=== PATIENT | female | born 1945 | race Caucasian/White ===

== ENCOUNTER 2019-11-26 10:29 | Outpatient (CLI) | payer MEDICARE, SELFPAY ==
[2019-11-26 13:21] LABS: Basophils Percent Auto 0.7 % (0.2-1.2); Eosinophils Absolute Auto 0.1 K/mm3 (0-0.3); Eosinophils Percent Auto 1.4 % (0-4.4); Hemoglobin 12.3 g/dL (12.0-15.0); Lymphocytes Percent Auto 44.8 % (18.3-44.2); Mean Corpuscular HGB Conc 31.5 g/dl (32-36); Mean Corpuscular Hemoglobin 30.1 pg (26-34); Mean Corpuscular Volume 95.4 fl (80-100); Mean Platelet Volume 11.6 fl (7.4-10.4); Monocytes Absolute Auto 0.4 K/mm3 (0.1-0.6); Monocytes Percent Auto 9.4 % (2.6-8.5); Neutrophils Absolute Auto 1.9 K/mm3 (1.3-6.7); Neutrophils Percent Auto 43.7 % (45.5-73.1); Platelet Count Result 197 k/mm3 (150-375); Red Blood Count 4.09 M/mm3 (4.2-5.4); Red Cell Distribution Width 14.3 % (11.5-14.5); White Blood Count 4.2 K/mm3 (4.5-10.0)
[2019-11-26 13:43] LABS: Alanine Aminotransferase 18 U/L (4-35); Albumin Level 4.3 g/dL (3.5-5.1); Alkaline Phosphatase 45 U/L (38-126); Aspartate Amino Transferase 27 U/L (14-36); Bilirubin,Total 0.7 mg/dL (0.2-1.3); Blood Urea Nitrogen 14 mg/dL (7-17); Calcium 9.6 mg/dL (8.4-10.2); Carbon Dioxide 29 mmol/L (22-30); Chloride 103 mmol/L (98-107); Cholesterol 160 mg/dL (0-200); Estimated Glomerular Filt Rate > 60; Glucose 93 mg/dL (65-105); HDL Direct 80 mg/dL; Potassium 4.2 mmol/L (3.4-5.0); Sodium 139 mmol/L (137-145); Triglycerides 40 mg/dL (<150)
[2019-11-26 13:55] LABS: LDL Cholesterol Direct 98 mg/dL
[2019-11-26 13:59] LABS: Free T4 Free Thyroxine 1.03 ng/mL (0.78-2.19)
[2019-12-02 13:47] LABS: Vitamin D 1,25 (OH)2 Total 36 pg/mL (18-72); Vitamin D2 1,25 (OH)2 <8 pg/mL; Vitamin D3 1,25 (OH)2 36 pg/mL
== END 2019-11-26 10:30 | disposition home or self-care (01) ==
LOC: ANHWCLAB 10:33
PROVIDERS: PCP Internal Medicine; Visit Provider Internal Medicine
DX: E55.9 Vitamin D deficiency, unspecified (principal); E78.2 Mixed hyperlipidemia; E01.0 Iodine-deficiency related diffuse (endemic) goiter; I10 Essential (primary) hypertension
CPT/HCPCS: 36415; 80053; 80061; 82652; 84439; 84443; 85025

== ENCOUNTER 2019-11-30 10:45 | Outpatient (CLI) | payer MEDICARE, SELFPAY ==
--- NOTE | ~2019-11-30 | US_ITS ---
EXAMINATION: US thyroid DATE: 11/30/2019 11:24 INDICATION: Thyroid nodules. TECHNIQUE: Multiple ultrasound images of the thyroid were obtained. COMPARISON: Thyroid ultrasound 08/10/2019 FINDINGS: The right thyroid lobe measures 5.0 x 1.2 x 1.2 cm. The left thyroid lobe measures 4.6 x 0.9 x 0.7 c m. In the right thyroid lobe, there is a 4 mm cystic nodule (TI-RADS TR1). There is a 4 mm mixed joellen id and cystic, hypoechoic, wider than tall nodule with smooth margin without echogenic foci (TR3). IMPRESSION: 1. Stable small thyroid nodules, likely not clinically significant. No follow-up is needed. Reviewed, dictated and finalized at location A. IMPRESSION: 1. Stable small thyroid nodules, likely not clinically significant. No follow-u p is needed.
== END 2019-11-30 10:46 | disposition home or self-care (01) ==
PROVIDERS: PCP Internal Medicine; Visit Provider Internal Medicine
DX: E01.0 Iodine-deficiency related diffuse (endemic) goiter (principal)
CPT/HCPCS: 76536

== ENCOUNTER 2020-02-23 12:01 | Outpatient (CLI) | payer MEDICARE, SELFPAY ==
--- NOTE | ~2020-02-23 | CT_ITS ---
EXAMINATION: CT abdomen pelvis w con DATE: 02/23/2020 13:13 INDICATION: Right lower quadrant abdominal pain. Melena. TECHNIQUE: Computed tomography (CT) of the abdomen and pelvis was performed with 100 mL Omnipaque 350 intravenous contrast. Automated exposure control and iterative reconstruction technique were employe d. The dose-length product was 234.11 mGy-cm. COMPARISON: Chest CT 12/30/2013 FINDINGS: The visualized portions of the lung bases demonstrate mild atelectasis. There are bilateral posterior diaphragmatic hernias containing fat. No pleural effusion. The heart size is normal. No pe ricardial effusion. There are cysts in the liver measuring up to 3.7 cm. The gallbladder, spleen, gaspar creas, and adrenal glands are normal. There are cysts in the kidneys measuring up to 10 mm on the lef t. The periuterine and ovarian veins are enlarged, consistent with pelvic venous insufficiency. There is a 2.8 cm cyst in left ovary, likely benign. There is diverticulosis of the colon without evidence of diverticulitis. The appendix is normal. There are no dilated loops of bowel. There are no patholo gically enlarged lymph nodes. There is no free intraperitoneal fluid. There is severe lower lumbar sp ondylosis. IMPRESSION: 1. Pelvic venous insufficiency. Reviewed, dictated and finalized at location A.
[2020-02-23 12:26] LABS: Basophils Absolute Auto 0.1 K/mm3 (0.0-0.1); Basophils Percent Auto 0.8 % (0.2-1.2); Eosinophils Percent Auto 0.7 % (0-4.4); Hematocrit 39.1 % (37.0-47.0); Hemoglobin 12.7 g/dL (12.0-15.0); Immature Granulocyte Absolute 0.01 K/mm3 (0.00-0.031); Immature Granulocyte Percent A 0.2 % (0-0.5); Lymphocytes Percent Auto 34.4 % (18.3-44.2); Mean Corpuscular HGB Conc 32.5 g/dl (32-36); Mean Corpuscular Hemoglobin 30.9 pg (26-34); Mean Corpuscular Volume 95.1 fl (80-100); Monocytes Absolute Auto 0.5 K/mm3 (0.1-0.6); Neutrophils Absolute Auto 3.4 K/mm3 (1.3-6.7); Neutrophils Percent Auto 55.9 % (45.5-73.1); Platelet Count Result 192 k/mm3 (150-375); Red Blood Count 4.11 M/mm3 (4.2-5.4); Red Cell Distribution Width 14.6 % (11.5-14.5); White Blood Count 6.1 K/mm3 (4.5-10.0)
[2020-02-23 12:45] LABS: Blood Urea Nitrogen 14 mg/dL (7-17); Calcium 9.6 mg/dL (8.4-10.2); Carbon Dioxide 31 mmol/L (22-30); Chloride 103 mmol/L (98-107); Estimated Glomerular Filt Rate > 60; Glucose 96 mg/dL (65-105); Potassium 3.6 mmol/L (3.4-5.0); Sodium 139 mmol/L (137-145)
== END 2020-02-23 12:02 | disposition home or self-care (01) ==
PROVIDERS: PCP Internal Medicine; Visit Provider Internal Medicine
DX: K92.1 Melena (principal); R19.7 Diarrhea, unspecified; R10.12 Left upper quadrant pain; I87.2 Venous insufficiency (chronic) (peripheral)
CPT/HCPCS: 36415; 74177; 80048; 85025; Q9967

== ENCOUNTER 2020-03-30 09:15 | Outpatient (CLI) | payer MEDICARE, SELFPAY ==
[2020-03-30 10:19] LABS: Blood Urea Nitrogen 17 mg/dL (7-17); Calcium 9.1 mg/dL (8.4-10.2); Carbon Dioxide 30 mmol/L (22-30); Chloride 103 mmol/L (98-107); Cholesterol 164 mg/dL (0-200); Estimated Glomerular Filt Rate > 60; Glucose 78 mg/dL (65-105); HDL Direct 64 mg/dL; Potassium 3.9 mmol/L (3.4-5.0); Sodium 138 mmol/L (137-145); Triglycerides 45 mg/dL (<150)
[2020-03-30 10:29] LABS: LDL Cholesterol Direct 73 mg/dL
[2020-03-30 10:54] LABS: Free T4 Free Thyroxine 0.99 ng/mL (0.78-2.19)
== END 2020-03-30 09:16 | disposition home or self-care (01) ==
LOC: ANHLAB 09:18
PROVIDERS: PCP Internal Medicine; Visit Provider Internal Medicine
DX: E78.2 Mixed hyperlipidemia (principal); I10 Essential (primary) hypertension; E01.0 Iodine-deficiency related diffuse (endemic) goiter
CPT/HCPCS: 36415; 80048; 80061; 84439; 84443

== ENCOUNTER 2020-09-30 09:59 | Outpatient (CLI) | payer MEDICARE, SELFPAY ==
[2020-09-30 10:45] LABS: Hemoglobin A1C 4.9 % (<5.7)
[2020-09-30 10:46] LABS: Alanine Aminotransferase 17 U/L (4-35); Albumin Level 4.1 g/dL (3.5-5.1); Alkaline Phosphatase 47 U/L (38-126); Anion Gap 4 mmol/L (8-16); Aspartate Amino Transferase 27 U/L (14-36); Bilirubin,Total 0.7 mg/dL (0.2-1.3); Blood Urea Nitrogen 14 mg/dL (7-17); Calcium 9.3 mg/dL (8.4-10.2); Carbon Dioxide 33 mmol/L (22-30); Chloride 103 mmol/L (98-107); Cholesterol 178 mg/dL (0-200); Estimated Glomerular Filt Rate > 60; Glucose 96 mg/dL (65-105); HDL Direct 75 mg/dL; Potassium 4.1 mmol/L (3.4-5.0); Sodium 140 mmol/L (137-145); Triglycerides 53 mg/dL (<150)
[2020-09-30 11:09] LABS: LDL Cholesterol Direct 80 mg/dL
== END 2020-09-30 10:00 | disposition home or self-care (01) ==
LOC: ANHLAB 10:02
PROVIDERS: PCP Internal Medicine; Visit Provider Internal Medicine
DX: E78.2 Mixed hyperlipidemia (principal); I10 Essential (primary) hypertension; Z79.899 Other long term (current) drug therapy
CPT/HCPCS: 36415; 80053; 80061; 83036; 84443

== ENCOUNTER 2020-10-05 12:56 | Outpatient (CLI) | payer MEDICARE, SELFPAY | END 2020-10-05 12:57 | disposition home or self-care (01) | LOC: ANHSURGERY 12:58 | PROVIDERS: PCP Internal Medicine; Visit Provider Surgery | DX: Z01.818 Encounter for other preprocedural examination (principal); K40.90 Unilateral inguinal hernia, without obstruction or gangrene, not specified as recurrent | CPT/HCPCS: 36415; 86850; 86900; 86901 ==

== ENCOUNTER 2020-10-08 00:44 | Outpatient (CLI) | payer MEDICARE, SELFPAY ==
[2020-10-08 18:47] LABS: SARS-CoV-2 RNA PCR Negative
== END 2020-10-08 00:45 | disposition home or self-care (01) ==
LOC: ANHCOVIDDT 00:45
PROVIDERS: PCP Internal Medicine; Visit Provider Surgery
DX: Z01.812 Encounter for preprocedural laboratory examination (principal); Z20.822 Contact with and (suspected) exposure to COVID-19
CPT/HCPCS: C9803; U0003; U0005

== ENCOUNTER 2020-10-11 00:39 | Day surgery (SDC) | payer MEDICARE, SELFPAY ==
[2020-10-04 10:42] VITALS: BMI 23.4
--- NOTE | 2020-10-10 11:59 | WPDANESEPPF ---
Anes - Initial Pre Proc Eval Procedure: Operation Date: 10/11/20 07:30 Proposed Procedures p Laparoscopic Right Inguinal Hernia Repair with Mesh, Davinci Assisted - Marcial Rivers DO Date/Time: 10/10/20 11:59 Surgeon: Marcial Rivers DO Pre Op Diagnosis: right inguinal hernia Patient Data Age: 75 Gender: F Height: 1.65 m Weight: 64 kg Allergies Allergy/AdvReac Type Severity Reaction Status Date / Time bee venom protein (honey bee) Allergy Severe Anaphylaxis Verified 10/11/20 06:19 Sulfa (Sulfonamide AdvReac Unknown BLOOD IN Verified 10/11/20 06:19 Antibiotics) URINE A CHILD Home Medications Medication Instructions Recorded Confirmed Type cholecalciferol (vitamin D3) 50 2,000 unit PO DAILY 08/03/19 10/11/20 History mcg (2,000 unit) tablet epinephrine 0.3 mg/0.3 mL 0.3 mg IM ONCE PRN 08/03/19 10/04/20 History injection, auto-injector mecobalamin (vitamin B12) 1,000 1,000 mcg SUBLINGUAL DAILY 08/03/19 10/11/20 History mcg disintegrating tablet,sublingual multivitamin 1 tablet PO DAILY 08/03/19 10/11/20 History amlodipine-benazepril 1 cap PO QAM 10/04/20 10/11/20 History cranberry extract 1,300 mg PO DAILY 10/04/20 10/11/20 History metoprolol succinate 50 mg PO HS 10/04/20 10/11/20 History pravastatin 40 mg PO QAM 10/04/20 10/11/20 History hydrocodone-acetaminophen [[place]] 1 tablet PO Q4H PRN #10 tablet 10/11/20 Rx Patient hx anesthesia problems: none Family hx anesthesia problems: none PMFSH Past Medical History Medical History Abdominal wall hernia Benign essential hypertension Biceps tendonitis on left Bloody stools BMI 22.0-22.9, adult Chest discomfort Diarrhea Encounter for Medicare annual wellness exam Encounter for routine adult health examination without abnormal findings Encounter for screening mammogram for malignant neoplasm of breast GERD (gastroesophageal reflux disease) Hx of chest pain Hx of sarcoma of soft tissue Left ovarian cyst Mixed hyperlipidemia On jail drug therapy RLQ abdominal pain Thyromegaly Vaginal bleeding Vitamin B12 deficiency Vitamin D deficiency Surgical History Surgical History H/O heart artery stent History of surgical removal of skin lesion left arm Family History Family History Mother Family history of lung cancer Family history of malignant neoplasm Father Acute myocardial infarction Hypertension Social History Social History Smoking packs per day: 1 Smoking cigarettes per day: 20.0 Years smoked: 10 Smoking pack-years: 10.00 Smoking status: Former smoker Smoking end date: 03/23/84 Alcohol intake: never Substance use: never Living arrangements: with family Additional living arrangements comments: Spiritual care concerns: No Anes - Eval Final PreProcedure Day of Procedure 10/10/20 11:59 Patient weight: normal Heart: regular rate and rhythm Lungs: clear to auscultation and normal air movement Airway: Mallampati scale class II Neurological: alert and oriented Last oral intake: >/= 8 hours ASA classification: II Emergent: no Anesthetic plan: proceed Anesthesia type and monitoring: general ETT Informed Consent: The patient's anesthetic plan and its attendant risks and benefits were discussed with the patient/family/POA. Questions were solicited and answers provided to the satisfaction of the patient/family/POA.
[2020-10-11] VITALS (11 sets, daily range): BP systolic 118–147; BP diastolic 54–70; PULSE 51–68; RESP 10–20; TEMP 36.1–37.4; O2SAT 99–100
[2020-10-11] MEDS: ACETAMINOPHEN 500 MG TABLET 1000 MG PO (06:16)
[2020-10-11] MEDS: LACTATED RINGERS 1,000 ML 30 ML IV CONT ×2 (06:41→09:08)
[2020-10-11] MEDS: KETOROLAC 15 MG/ML VIAL (*BKC) IV PUSH (06:54)
--- NOTE | 2020-10-11 07:17 | PM.IMHP ---
H&P: HPI History of Present Illness Date/Time: 10/11/20 07:17 Chief Complaint: [facility] Narrative: Lila Matt is a 75 year old female who presents for right inguinal hernia repair. She reports no changes since last seen in office. Review of Systems Review of Systems: All systems reviewed & are unremarkable except as noted in HPI and below Constitutional: Constitutional: Denies chills, Denies fever(s), Denies headache(s) and Denies weight loss Eyes: Eyes: Denies change in vision ENT: Denies dizziness, Denies headache(s), Denies neck mass and Denies throat swelling Cardiovascular: Cardiovascular: Denies chest pain, Denies lightheadedness and Denies dyspnea Respiratory: Respiratory: Denies cough, Denies dyspnea and Denies wheezing Gastrointestinal: Gastrointestinal: Denies abdominal pain, Denies change in bowel habits, Denies nausea and Denies vomiting Genitourinary: Genitourinary: Denies hematuria and Denies dysuria Musculoskeletal: Musculoskeletal: Reports as per HPI Integumentary/Breasts: Skin/Breast: Reports as per HPI Neurologic: Denies dizziness and Denies headache(s) Allergic/Immunologic: Allergic/Immunologic: Denies throat swelling and Denies wheezing PMF Past Medical History Medical History Abdominal wall hernia Benign essential hypertension Biceps tendonitis on left Bloody stools BMI 22.0-22.9, adult Chest discomfort Diarrhea Encounter for Medicare annual wellness exam Encounter for routine adult health examination without abnormal findings Encounter for screening mammogram for malignant neoplasm of breast GERD (gastroesophageal reflux disease) Hx of chest pain Hx of sarcoma of soft tissue Left ovarian cyst Mixed 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 RLQ abdominal pain Thyromegaly Vaginal bleeding Vitamin B12 deficiency Vitamin D deficiency Surgical History Surgical History H/O heart artery stent History of surgical removal of skin lesion left arm Family History Family History Mother Family history of lung cancer Family history of malignant neoplasm Father Acute myocardial infarction Hypertension Social History Social History Smoking packs per day: 1 Smoking cigarettes per day: 20.0 Years smoked: 10 Smoking pack-years: 10.00 Smoking status: Former smoker Smoking end date: 03/23/84 Alcohol intake: never Substance use: never Living arrangements: with family Additional living arrangements comments: Spiritual care concerns: No Meds Home Medications and Allergies Home Medications Medication Instructions Recorded Confirmed Type cholecalciferol (vitamin D3) 50 2,000 unit PO DAILY 08/03/19 10/11/20 History mcg (2,000 unit) tablet epinephrine 0.3 mg/0.3 mL 0.3 mg IM ONCE PRN 08/03/19 10/04/20 History injection, auto-injector mecobalamin (vitamin B12) 1,000 1,000 mcg SUBLINGUAL DAILY 08/03/19 10/11/20 History mcg disintegrating tablet,sublingual multivitamin 1 tablet PO DAILY 08/03/19 10/11/20 History amlodipine-benazepril 1 cap PO QAM 10/04/20 10/11/20 History cranberry extract 1,300 mg PO DAILY 10/04/20 10/11/20 History metoprolol succinate 50 mg PO HS 10/04/20 10/11/20 History pravastatin 40 mg PO QAM 10/04/20 10/11/20 History Allergies Allergy/AdvReac Type Severity Reaction Status Date / Time bee venom protein (honey bee) Allergy Severe Anaphylaxis Verified 10/11/20 06:19 Sulfa (Sulfonamide AdvReac Unknown BLOOD IN Verified 10/11/20 06:19 Antibiotics) URINE A CHILD Vital Signs Vital Signs - 24 hr 10/11/20 06:16 Temperature 37.4 C Pulse Rate 66 Respiratory Rate 20 Blood Pressure 147/70 H Pulse Oximetry 100 Exam Const: General: no acute distress and alert Orientatio
--- NOTE | 2020-10-11 07:24 | WPDHPUPDATE1 ---
History and Physical Update Update Date/Time: 10/11/20 07:24 History and Physical has been reviewed, including an updated exam of the patient. There are NO changes in the patient's condition. Risks, benefits, and alternatives have been discussed and questions answered. Patient agrees to proceed with procedure.
[2020-10-11] MEDS: ceFAZolin 2 GM/D5W 50 ML 2 GM/50 ML BAG IVPB (07:29)
[2020-10-11] MEDS: BUPIVACAINE/EPINEPHRINE 0.5% 10 ML VIAL 30 ML INFILTRATE (07:54)
--- NOTE | 2020-10-11 08:38 | PM.PROC ---
Procedure Note - Detailed Date of procedure: 10/11/20 Pre-op diagnosis: right inguinal hernia Post-op diagnosis: other (right femoral hernia) Procedure performed: Laparoscopic right femoral hernia repair with Progrip mesh, da Joel assisted Description of procedure: Procedure as well as risks, benefits, and alternatives were discussed with the patient. Written consent was obtained and placed in chart prior to procedure. Patient was brought back to surgical suite. She was placed supine on operating table. Time-out was done to confirm patient and procedure. She was then intubated by Anesthesia Department. Her abdomen was prepped and draped in sterile fashion using chlorhexidine prep. 0.5% bupivacaine with epinephrine was infiltrated at each location for incision. A 12 millimeter transverse incision was made just superior to the umbilicus using a 15 blade scalpel. Blunt dissection was carried out down to the linea alba. A vertical incision was made at the linea alba using a 15 blade scalpel. The peritoneum was then bluntly entered. A 12 millimeter trocar was inserted and carbon dioxide insufflation was used to create a pneumoperitoneum. A camera was inserted and the abdominal cavity was inspected. The patient was placed in slight Trendelenburg position. An 8 millimeter incision was made on the right lateral abdomen and an 8 millimeter trocar was inserted under direct visualization. Another 8 millimeter incision was made in the left lateral abdomen and an 8 millimeter trocar was inserted under direct visualization. The robotic arms were brought up to the patient's bedside and secured to the ports. The camera and instruments were inserted. I then moved over to the robotic console and took control of the camera and instruments. After careful inspection of the abdominal cavity, I began scoring the peritoneum along the right lower quadrant using scissors with electrocautery. The preperitoneal plane was entered and this was carefully dissected caudally along the inferior epigastric vessels. Careful dissection with scissors with electrocautery and blunt dissection was used to continue this dissection. I dissected far enough laterally to allow for mesh placement, and also dissected medially to identify the pubic arch and Arsh's ligament. The hernia sac was identified and carefully dissected posteriorly. The round ligament was also identified and the peritoneum was carefully dissected far enough posteriorly to allow for mesh placement. The round ligament was then transected using scissors with electrocautery to allow for further mobilization and flat mesh placement. Once an adequate pocket was created, I then placed the mesh within the preperitoneal pocket and carefully unfolded it. The mesh was centered on the hernia defect with adequate overlap circumferentially. The inferior edge of the mesh was inspected to ensure that it was far enough away from the peritoneal edge. The mesh appeared in proper position overlying the entire myopectineal orifice. The peritoneum was then closed over the mesh using a 3-0 V-lock running absorbable suture. The robotic instruments were removed. The robotic arms were disengaged from the ports and moved away from the bedside. The patient was flattened out in bed, the ports were removed under direct visualization, and the pneumoperitoneum was released. The fascia of the umbilical incision was approximated using an 0 Vicryl [id number] suture. The skin of the incisions was approximated using 4-0 Monocryl subcuticular suture, and Exofin glue was applied on top. The patient was awakened from anesthesia, extubated, and transferred to recovery. Implants: Progrip Mesh 10cm x 15cm Anesthesia: GETA and local (0.5% bupivicaine with epi) Surgeon: Marcial Rivers DO Estimated blood loss (mL): 5 Drains: No Packing: No Pathology: none sent Complications: No immediate complications Condition: stable Disposition: same day Finding
[2020-10-11] MEDS: fentaNYL CITRATE INJ (*CRX) 100 MCG/2 ML VIAL 25 MCG IV PUSH ×4 (09:07→09:45)
[2020-10-11] MEDS: oxyCODONE HCL (*CRX) 5 MG TAB IR PO (10:10)
--- NOTE | 2020-10-11 10:47 | SUR.OPER ---
Late Entry/RIH Mesh ProGrip 15x10, Lot [id number], Eop 2023-05-23
--- NOTE | 2020-10-11 12:02 | SUR.PHASEII ---
1126 - pt ambulated to bathroom and voided without difficulty
== END 2020-10-11 11:50 | disposition home or self-care (01) ==
PROVIDERS: PCP Internal Medicine; Visit Provider Surgery
PROC: 8E0Y4CZ Robotic Assisted Procedure of Lower Extremity, Percutaneous Endoscopic Approach (ICD-10-PCS; CPT 49650; principal; 2020-10-11 07:30)
DX: K41.90 Unilateral femoral hernia, without obstruction or gangrene, not specified as recurrent (principal); I10 Essential (primary) hypertension; E78.2 Mixed hyperlipidemia; E55.9 Vitamin D deficiency, unspecified; E53.8 Deficiency of other specified B group vitamins; Z95.5 Presence of coronary angioplasty implant and graft; Z87.891 Personal history of nicotine dependence
CPT/HCPCS: 49659; S2900; A9270; C1781; J0330; J0690; J1100; J1885; J2250; J2405; J2704; J2710; J3010; J7030; J7120

== ENCOUNTER 2021-01-24 10:50 | Outpatient (CLI) | payer MEDICARE, SELFPAY ==
[2021-01-24 11:33] LABS: Basophils Absolute Auto 0.1 K/mm3 (0.0-0.1); Eosinophils Absolute Auto 0.1 K/mm3 (0-0.3); Eosinophils Percent Auto 1.4 % (0-4.4); Hematocrit 36.9 % (37.0-47.0); Immature Granulocyte Absolute 0.01 K/mm3 (0.00-0.031); Immature Granulocyte Percent A 0.2 % (0-0.5); Lymphocytes Absolute Auto 1.97 K/mm3 (0.9-3.2); Lymphocytes Percent Auto 39.6 % (18.3-44.2); Mean Corpuscular HGB Conc 32.5 g/dl (32-36); Mean Corpuscular Volume 92.3 fl (80-100); Mean Platelet Volume 11.1 fl (7.4-10.4); Monocytes Absolute Auto 0.4 K/mm3 (0.1-0.6); Neutrophils Absolute Auto 2.5 K/mm3 (1.3-6.7); Neutrophils Percent Auto 49.8 % (45.5-73.1); Platelet Count Result 193 k/mm3 (150-375); Red Cell Distribution Width 14.9 % (11.5-14.5)
[2021-01-24 11:36] LABS: Add Urine Microscopic? NO; Appearance Urine Clear (Clear); Bilirubin Urine Negative (Negative); Blood Urine Negative (Negative); Color Urine Yellow (Yellow); Glucose Urine UA Negative (Negative); Ketones Urine Negative (Negative); Leukocyte Esterase Ur Negative LEU/UL (NEGATIVE); Nitrate Urine Negative (Negative); Protein Urine Negative (Negative); Urobilinogen Urine Negative mg/dL (<2.0)
[2021-01-24 11:43] LABS: Alanine Aminotransferase 21 U/L (4-35); Albumin Level 4.3 g/dL (3.5-5.1); Alkaline Phosphatase 48 U/L (38-126); Anion Gap 4 mmol/L (8-16); Aspartate Amino Transferase 29 U/L (14-36); Bilirubin,Total 0.7 mg/dL (0.2-1.3); Blood Urea Nitrogen 13 mg/dL (7-17); Calcium 9.3 mg/dL (8.4-10.2); Carbon Dioxide 31 mmol/L (22-30); Chloride 104 mmol/L (98-107); Cholesterol 186 mg/dL (0-200); Estimated Glomerular Filt Rate > 60; Glucose 92 mg/dL (65-105); HDL Direct 73 mg/dL; Sodium 139 mmol/L (137-145); Triglycerides 72 mg/dL (<150)
[2021-01-24 11:47] LABS: Specific Grav Ur 1.004 (1.001-1.035)
[2021-01-24 11:53] LABS: LDL Cholesterol Direct 82 mg/dL
[2021-01-24 13:40] LABS: Folic Acid > 20.0 ng/mL (2.76->20)
[2021-01-27 15:03] LABS: Vitamin D 1,25 (OH)2 Total 74 pg/mL (18-72); Vitamin D2 1,25 (OH)2 <8 pg/mL; Vitamin D3 1,25 (OH)2 74 pg/mL
== END 2021-01-24 10:51 | disposition home or self-care (01) ==
PROVIDERS: PCP Internal Medicine; Visit Provider Internal Medicine
DX: E53.8 Deficiency of other specified B group vitamins (principal); E78.2 Mixed hyperlipidemia; E55.9 Vitamin D deficiency, unspecified; Z51.81 Encounter for therapeutic drug level monitoring; Z79.899 Other long term (current) drug therapy; I10 Essential (primary) hypertension
CPT/HCPCS: 36415; 80053; 80061; 81003; 82607; 82652; 82746; 85025

== ENCOUNTER 2021-06-08 09:18 | Outpatient (CLI) | payer MEDICARE, SELFPAY ==
[2021-06-08 09:55] LABS: Hemoglobin A1C 5.1 % (<5.7)
[2021-06-08 10:01] LABS: Anion Gap 4 mmol/L (8-16); Blood Urea Nitrogen 16 mg/dL (7-17); Calcium 9.4 mg/dL (8.4-10.2); Carbon Dioxide 32 mmol/L (22-30); Chloride 104 mmol/L (98-107); Cholesterol 189 mg/dL (0-200); Estimated Glomerular Filt Rate > 60; Glucose 99 mg/dL (65-110); HDL Direct 82 mg/dL; Sodium 140 mmol/L (137-145); Triglycerides 47 mg/dL (<150)
[2021-06-08 10:12] LABS: LDL Cholesterol Direct 73 mg/dL
[2021-06-12 11:48] LABS: Vitamin D 1,25 (OH)2 Total 53 pg/mL (18-72); Vitamin D2 1,25 (OH)2 <8 pg/mL; Vitamin D3 1,25 (OH)2 53 pg/mL
== END 2021-06-08 09:19 | disposition home or self-care (01) ==
LOC: ANHLAB 09:21
PROVIDERS: PCP Internal Medicine; Visit Provider Internal Medicine
DX: Z51.81 Encounter for therapeutic drug level monitoring (principal); Z79.899 Other long term (current) drug therapy; I10 Essential (primary) hypertension; E55.9 Vitamin D deficiency, unspecified; E78.2 Mixed hyperlipidemia
CPT/HCPCS: 36415; 80048; 80061; 82652; 83036

== ENCOUNTER 2021-10-02 10:48 | Outpatient (CLI) | payer MEDICARE, SELFPAY ==
[2021-10-02 11:30] LABS: Basophils Absolute Auto 0.1 K/mm3 (0.0-0.1); Basophils Percent Auto 1.1 % (0.2-1.2); Eosinophils Absolute Auto 0.1 K/mm3 (0-0.3); Eosinophils Percent Auto 0.9 % (0-4.4); Hematocrit 35.7 % (37.0-47.0); Hemoglobin 11.8 g/dL (12.0-15.0); Immature Granulocyte Absolute 0.01 K/mm3 (0.00-0.031); Immature Granulocyte Percent A 0.2 % (0-0.5); Lymphocytes Absolute Auto 2.34 K/mm3 (0.9-3.2); Lymphocytes Percent Auto 42.3 % (18.3-44.2); Mean Corpuscular HGB Conc 33.1 g/dl (32-36); Mean Corpuscular Hemoglobin 31.1 pg (26-34); Mean Corpuscular Volume 93.9 fl (80-100); Mean Platelet Volume 10.8 fl (7.4-10.4); Monocytes Absolute Auto 0.5 K/mm3 (0.1-0.6); Monocytes Percent Auto 8.7 % (2.6-8.5); Neutrophils Absolute Auto 2.6 K/mm3 (1.3-6.7); Neutrophils Percent Auto 46.8 % (45.5-73.1); Platelet Count Result 181 k/mm3 (150-375); Red Cell Distribution Width 14.5 % (11.5-14.5); White Blood Count 5.5 K/mm3 (4.5-10.0)
[2021-10-02 11:40] LABS: Anion Gap 10 mmol/L (8-16); Blood Urea Nitrogen 17 mg/dL (7-17); Calcium 9.2 mg/dL (8.4-10.2); Carbon Dioxide 27 mmol/L (22-30); Chloride 100 mmol/L (98-107); Cholesterol 176 mg/dL (0-200); Estimated Glomerular Filt Rate > 60; Glucose 95 mg/dL (65-110); HDL Direct 82 mg/dL; Potassium 3.9 mmol/L (3.4-5.0); Sodium 137 mmol/L (137-145); Triglycerides 45 mg/dL (<150)
[2021-10-02 11:51] LABS: LDL Cholesterol Direct 78 mg/dL
== END 2021-10-02 10:49 | disposition home or self-care (01) ==
LOC: ANHLAB 10:53
PROVIDERS: PCP Internal Medicine; Visit Provider Internal Medicine
DX: E78.2 Mixed hyperlipidemia (principal); I10 Essential (primary) hypertension; Z79.899 Other long term (current) drug therapy; K21.9 Gastro-esophageal reflux disease without esophagitis; R07.89 Other chest pain
CPT/HCPCS: 36415; 80048; 80061; 85025

== ENCOUNTER 2022-01-16 09:36 | Outpatient (CLI) | payer MEDICARE, SELFPAY ==
--- NOTE | ~2022-01-16 | XR_ITS ---
EXAMINATION: XR shoulder RT min 2V INDICATION: Right shoulder pain TECHNIQUE: Four views of the right shoulder are submitted. COMPARISON: None FINDINGS: Normal alignment. No fracture. There is mild osteoarthritis of the glenohumeral and acromio clavicular joints. Soft tissues are unremarkable. IMPRESSION: 1. Mild osteoarthritis without acute osseous abnormality. Reviewed, dictated and finalized at location F.
[2022-01-16 10:14] LABS: Basophils Absolute Auto 0.1 K/mm3 (0.0-0.1); Eosinophils Absolute Auto 0.1 K/mm3 (0-0.3); Eosinophils Percent Auto 2.3 % (0-4.4); Hematocrit 36.9 % (37.0-47.0); Immature Granulocyte Absolute 0.02 K/mm3 (0.00-0.031); Immature Granulocyte Percent A 0.3 % (0-0.5); Lymphocytes Absolute Auto 1.98 K/mm3 (0.9-3.2); Lymphocytes Percent Auto 32.1 % (18.3-44.2); Mean Corpuscular HGB Conc 32.5 g/dl (32-36); Mean Corpuscular Hemoglobin 31.7 pg (26-34); Mean Corpuscular Volume 97.6 fl (80-100); Mean Platelet Volume 11.1 fl (7.4-10.4); Monocytes Absolute Auto 0.6 K/mm3 (0.1-0.6); Monocytes Percent Auto 9.2 % (2.6-8.5); Neutrophils Absolute Auto 3.4 K/mm3 (1.3-6.7); Neutrophils Percent Auto 55.1 % (45.5-73.1); Platelet Count Result 177 k/mm3 (150-375); Red Blood Count 3.78 M/mm3 (4.2-5.4); Red Cell Distribution Width 14.5 % (11.5-14.5); White Blood Count 6.2 K/mm3 (4.5-10.0)
[2022-01-16 10:28] LABS: Anion Gap 4 mmol/L (8-16); Blood Urea Nitrogen 14 mg/dL (7-17); CRP < 0.5 mg/dL (<1.0); Calcium 8.9 mg/dL (8.4-10.2); Carbon Dioxide 29 mmol/L (22-30); Chloride 104 mmol/L (98-107); Estimated Glomerular Filt Rate > 60; Glucose 87 mg/dL (65-110); Sodium 137 mmol/L (137-145)
[2022-01-16 11:09] LABS: Erythrocyte Sedimentation Rate 23 mm/hr (0-20)
== END 2022-01-16 09:37 | disposition home or self-care (01) ==
PROVIDERS: PCP Internal Medicine; Visit Provider Internal Medicine
DX: R53.83 Other fatigue (principal); Z51.81 Encounter for therapeutic drug level monitoring; Z79.899 Other long term (current) drug therapy; M62.81 Muscle weakness (generalized); M19.011 Primary osteoarthritis, right shoulder
CPT/HCPCS: 36415; 73030; 80048; 84443; 85025; 85652; 86140

== ENCOUNTER 2022-02-11 12:33 | Outpatient (CLI) | payer MEDICARE, SELFPAY ==
--- NOTE | ~2022-02-11 | MR_ITS ---
EXAMINATION: MR shoulder RT wo con DATE: 02/11/2022 13:15 INDICATION: Right shoulder pain for one month. No history of injury. TECHNIQUE: Magnetic resonance imaging (MRI) of the right shoulder was performed without intravenous c ontrast. Sequences included axial PD-weighted FS FSE, coronal oblique PD-weighted FS FSE and T2-weigh darrell FS FSE, and sagittal oblique T2-weighted FS FSE and T1-weighted FSE. COMPARISON: X-ray right shoulder 01/16/2022 FINDINGS: Coracoacromial arch: Moderate AC joint hypertrophy. Minimal inferior osteophytosis. Lateral downsloping of the type I acro mion. Rotator cuff: 5 mm rim rent type tear at the junction of the supraspinatus and infraspinatus fibers, in a backgroun d of distal tendinopathy. Small interstitial tear at the supraspinatus musculotendinous junction. Sup raspinatus and infraspinatus atrophy. Focal partial-thickness tear at insertion of the subscapularis. Biceps tendon and glenoid labrum: Glenohumeral narrowing. Glenohumeral cartilage is intact. Longitudinal type tear in the long head of biceps tendon. Fluid: Minimal subacromial subdeltoid fluid. Mild inflammatory change and long head of biceps tendon as can be seen with tenosynovitis. Bones/cartilage: Subcortical cystic changes in the humeral head. IMPRESSION: 1. Rim rent type tear of the superior cuff. Interstitial supraspinatus tear. Focal partial-thickness subscapularis tear. 2. Longitudinally oriented long head of biceps tendon tear with mild tenosynovitis. 3. Degenerative acromioclavicular and humeral changes. Reviewed, dictated and finalized at location K. IMPRESSION: 1. Rim rent type tear of the superior cuff. Interstitial supraspinatus tear. Fo aline partial-thickness subscapularis tear. 2. Longitudinally oriented long head of biceps tendon tear with mild tenosynovi tis. 3. Degenerative acromioclavicular and humeral changes.
== END 2022-02-11 12:34 | disposition home or self-care (01) ==
PROVIDERS: PCP Internal Medicine; Visit Provider Internal Medicine
DX: M75.101 Unspecified rotator cuff tear or rupture of right shoulder, not specified as traumatic (principal); S43.431A Superior glenoid labrum lesion of right shoulder, initial encounter; X58.XXXA Exposure to other specified factors, initial encounter; M19.011 Primary osteoarthritis, right shoulder
CPT/HCPCS: 73221

== ENCOUNTER 2022-05-03 15:00 | Outpatient (RCR) | payer MEDICARE, SELFPAY ==
[2022-04-27 10:05] VITALS: BP_SYST 140
--- NOTE | 2022-04-27 10:47 | PTOPEVAL ---
Thank you for referring Lila Matt to [facility].? She is scheduled to be seen for therapy? 2 x/week for 4 weeks. Please review, sign, date and return this plan of care ARIANA. I agree with and certify that the following plan of care is medically necessary. Referring Physician Date Attending Provider: Domenic Mcguire MD Past Medical History--per pt Cardiovascular History Hx Cardiac Catheterization Yes: NML CATH 03/14/20 Hx Hypercholesterolemia Yes: meds Hx Hypertension Yes: meds Hx Other Cardiac Disorders Yes: + STRESS TEST 02/2020, NEG CATH 03/14/20 DR VENICE EVANS Respiratory History Hx Respiratory Disorders No Significant History Gastrointestinal History Hx Hernia Yes: RT INGUINAL HERNIA HEENT History Hx Tonsillectomy Yes: CHILD Integumentary History Hx Excision Skin Lesion Yes: SKIN CA- LT ARM, RADIATION Other History Hx Cancer Yes: SKIN CA LT ARM Hx Radiation Therapy Yes: LT ARM Evaluation Information Diagnosis R shoulder rotator cuff tear Onset Oct 2021 Subjective Information gradual increase in shoulder Query Text:As Reported By Patient/ pain, no injury or trauma to Family shoulder; doing all home tasks due to with medical issues- he can care for himself, she does not have to physically help him; wants to try PT and avoid having to have surgery; X-Rays For This Problem Yes MRI For This Problem Yes: R rotator cuff tear Pain Assessment Pain Scale Pain Scale Used Numeric (1 - 10) Self Report Pain Assessment Right Shoulder(s) Pain Description Aching,Dull,Sharp Radicular Pain Location at worst, lateral humerus to elbow--intermittent and lateral neck Pain Frequency Chronic,Continuous Other Pain Description hurts-anterior and lateral shoulder Lowest Pain Intensity 1 Greatest Pain Intensity 7 Pain Aggravating Factors Exercise/Activity,Lifting Other Pain Aggravating Factors reach behind body and overhead Additional Pain Score Comments not used heat/ice- instructed to use PRN; initially pain with sleeping, lie on R side- but now better; had injection 04-04-22-- helped some but starting to hurt more again Pain Relief Interventions Used By Migel
--- NOTE | 2022-05-08 11:28 | PCPTNOTE ---
Patient called & cancelled scheduled appointment for this week due to increase leg pain and has a scheduled appointment with Dr. Langford for more information.
--- NOTE | 2022-05-14 16:03 | PCPTNOTE ---
received a message, pt called and canceled all of therapy appt due to having leg pain. I called her, she stated shoulder is better, discussed to continue doing the shoulder exercises, progression from cane to active motion as tolerated. She stated she had MRI of her leg and awaiting dr to give her results. Discussed with her that PT plan of care for her shoulder is to May 2; she is to call if want to continue therapy for shoulder before that date.
--- NOTE | 2022-07-26 13:31 | PCPTNOTE ---
PHYSICAL THERAPY DISCHARGE 07-26-22 LATE ENTRY Attending Provider: Domenic Mcguire MD Patient:Lila Matt Date of :1945 Mayda has received 3 PT sessions, from April 27 to 2021, for the diagnosis of R rotator cuff tear/shoulder pain. She called late in April and stated her shoulder was better and did not want any more therapy. Therefore she will be discharged at this time. Thank you for referring this patient to [facility].
== END 2022-07-25 12:39 | disposition home or self-care (01) ==
LOC: ANHPT 15:00
PROVIDERS: PCP Internal Medicine; Referring Provider Orthopaedic Surgery; Visit Provider Orthopaedic Surgery
DX: M75.101 Unspecified rotator cuff tear or rupture of right shoulder, not specified as traumatic (principal)
CPT/HCPCS: 97110; 97161

== ENCOUNTER → 2022-05-08 09:42 | Outpatient (CLI) | payer MEDICARE, SELFPAY ==
--- NOTE | ~2022-05-08 | US_ITS ---
EXAMINATION: US joint non vasc comp LT DATE: 05/08/2022 10:05 INDICATION: Enthesopathy. Assess for Rader's cyst. TECHNIQUE: Multiple grayscale and Doppler ultrasound images of the lateral popliteal fossa of the lef t knee were obtained. COMPARISON: None FINDINGS/IMPRESSION: At the region of concern is a 2.1 x 1.6 cm echogenic and shadowing structure with small amount of nedra rounding hypoechoic fluid. This appears to be closely associated with the proximal head of the fibula more lateral than typical for a Rader's cyst. Differential would include a loose body within a gangl ion cyst or potentially recess of the proximal tibiofibular joint versus heterotopic ossicle or osteo chondroma arising from the fibula with associated bursitis. Consider correlation with knee radiograph s. Reviewed, dictated and finalized at location A.
== END ==
PROVIDERS: PCP Internal Medicine; Visit Provider Internal Medicine
DX: M77.32 Calcaneal spur, left foot (principal)
CPT/HCPCS: 76881

== ENCOUNTER 2022-05-10 13:49 | Outpatient (CLI) | payer MEDICARE, SELFPAY ==
--- NOTE | ~2022-05-10 | MR_ITS ---
EXAMINATION: MR knee LT wo con DATE: 05/10/2022 14:47 INDICATION: Left knee pain. TECHNIQUE: Magnetic resonance imaging (MRI) of the left knee was performed without intravenous contra st. Sequences included axial PD-weighted FS FSE, coronal PD-weighted FSE and PD-weighted FS FSE, sagi ttal PD-weighted FSE, and sagittal T2-weighted FS FSE. COMPARISON: None. FINDINGS: Medial compartment: Medial meniscus is normal. There is cartilage surface irregularity of tibial condyle. Femoral cartila ge is normal. Lateral compartment: The lateral meniscus is normal. Lateral compartment cartilage is normal. Patellofemoral compartment: There is full-thickness cartilage loss of patellar median ridge and medial and lateral facets with mi ld subchondral edema-like marrow signal intensity. There is full-thickness cartilage loss of medial t rochlea with mild subchondral edema-like marrow signal intensity. Ligaments and tendons: The anterior and posterior cruciate ligaments are normal. There are changes of prior sprains of media l collateral ligament and fibular collateral ligament characterized by thickening and increased signa l intensity. There is mild patellar tendinopathy. Fluid: There is a small knee joint effusion. There is mild superficial infrapatellar bursitis. IMPRESSION: 1. Severe chondrosis of patellofemoral compartment and mild chondrosis of medial compartment. 2. Small knee joint effusion. Reviewed, dictated and finalized at location A. IMPRESSION: 1. Severe chondrosis of patellofemoral compartment and mild chondrosis of media l compartment. 2. Small knee joint effusion.
== END 2022-05-10 13:50 | disposition home or self-care (01) ==
LOC: ANHIMG 13:51
PROVIDERS: PCP Internal Medicine; Visit Provider Internal Medicine
DX: M25.462 Effusion, left knee (principal)
CPT/HCPCS: 73721

== ENCOUNTER 2022-05-21 09:35 | Outpatient (CLI) | payer MEDICARE, SELFPAY ==
[2022-05-21 10:09] LABS: Basophils Absolute Auto 0.1 K/mm3 (0.0-0.1); Basophils Percent Auto 1.3 % (0.2-1.2); Eosinophils Absolute Auto 0.1 K/mm3 (0-0.3); Eosinophils Percent Auto 2.3 % (0-4.4); Hematocrit 38.2 % (37.0-47.0); Hemoglobin 12.1 g/dL (12.0-15.0); Immature Granulocyte Absolute 0.01 K/mm3 (0.00-0.031); Immature Granulocyte Percent A 0.2 % (0-0.5); Lymphocytes Absolute Auto 1.91 K/mm3 (0.9-3.2); Lymphocytes Percent Auto 40.4 % (18.3-44.2); Mean Corpuscular HGB Conc 31.7 g/dl (32-36); Mean Corpuscular Hemoglobin 30.6 pg (26-34); Mean Corpuscular Volume 96.5 fl (80-100); Mean Platelet Volume 10.7 fl (7.4-10.4); Monocytes Absolute Auto 0.4 K/mm3 (0.1-0.6); Monocytes Percent Auto 8.9 % (2.6-8.5); Neutrophils Absolute Auto 2.2 K/mm3 (1.3-6.7); Neutrophils Percent Auto 46.9 % (45.5-73.1); Platelet Count Result 205 k/mm3 (150-375); Red Blood Count 3.96 M/mm3 (4.2-5.4); Red Cell Distribution Width 14.3 % (11.5-14.5); White Blood Count 4.7 K/mm3 (4.5-10.0)
[2022-05-21 10:20] LABS: Appearance Urine Clear (Clear); Bilirubin Urine Negative (Negative); Color Urine Yellow (Yellow); Glucose Urine UA Negative (Negative); Ketones Urine Negative (Negative); Leukocyte Esterase Ur Trace LEU/UL (Negative); Nitrate Urine Negative (Negative); Protein Urine Negative (Negative); Specific Grav Ur 1.015 (1.001-1.035); Urobilinogen Urine 0.2 mg/dL (<2.0)
[2022-05-21 10:21] LABS: Alanine Aminotransferase 14 U/L (6-35); Alkaline Phosphatase 50 U/L (38-126); Anion Gap 8 mmol/L (8-16); Aspartate Amino Transferase 22 U/L (14-36); Bilirubin,Total 0.6 mg/dL (0.2-1.3); Blood Urea Nitrogen 15 mg/dL (7-17); Calcium 9.2 mg/dL (8.4-10.2); Carbon Dioxide 30 mmol/L (22-30); Chloride 102 mmol/L (98-107); Cholesterol 174 mg/dL (0-200); Estimated Glomerular Filt Rate > 60; Glucose 88 mg/dL (65-110); HDL Direct 75 mg/dL; Potassium 4.1 mmol/L (3.4-5.0); Sodium 140 mmol/L (137-145); Triglycerides 39 mg/dL (<150)
[2022-05-21 10:29] LABS: Add Urine Microscopic? YES; Blood Urine Trace-Intact (Negative)
[2022-05-21 10:32] LABS: LDL Cholesterol Direct 73 mg/dL
[2022-05-21 10:48] LABS: Hemoglobin A1C 5.2 % (<5.7)
[2022-05-21 10:52] LABS: Mucus Urine Rare /lpf; RBC Urine 0-2 /hpf (0-2); WBC Urine 0-3 /hpf
[2022-05-21 11:05] LABS: Free T4 Free Thyroxine 1.15 ng/mL (0.78-2.19); Vitamin D 25 Hydroxy 37.5 ng/mL
[2022-05-21 11:30] LABS: Folic Acid > 20.0 ng/mL (2.76->20)
== END 2022-05-21 09:36 | disposition home or self-care (01) ==
LOC: ANHLAB 09:38
PROVIDERS: PCP Internal Medicine; Visit Provider Internal Medicine
DX: Z79.899 Other long term (current) drug therapy (principal); E01.0 Iodine-deficiency related diffuse (endemic) goiter; Z13.29 Encounter for screening for other suspected endocrine disorder; I10 Essential (primary) hypertension; E78.2 Mixed hyperlipidemia; E55.9 Vitamin D deficiency, unspecified
CPT/HCPCS: 36415; 80053; 80061; 81001; 82306; 82607; 82746; 83036; 84439; 84443; 85025

== ENCOUNTER 2022-06-28 10:47 | Outpatient (CLI) | payer MEDICARE, SELFPAY ==
[2022-06-28 11:41] LABS: Appearance Urine Clear (Clear); Bilirubin Urine Negative (Negative); Blood Urine 1+ (Negative); Color Urine Yellow (Yellow); Glucose Urine UA Negative (Negative); Ketones Urine Negative (Negative); Leukocyte Esterase Ur Trace LEU/UL (Negative); Nitrate Urine Negative (Negative); Protein Urine Negative (Negative); Urobilinogen Urine 0.2 mg/dL (<2.0)
[2022-06-28 11:47] LABS: Bacteria Urine Trace /hpf; WBC Urine 21-30 /hpf
[2022-06-28 11:49] LABS: Add Urine Microscopic? YES
== END 2022-06-28 10:48 | disposition home or self-care (01) ==
PROVIDERS: PCP Internal Medicine; Visit Provider Internal Medicine
DX: R39.9 Unspecified symptoms and signs involving the genitourinary system (principal)
CPT/HCPCS: 81001; 87086; 87088

== ENCOUNTER 2022-10-09 09:57 | Outpatient (CLI) | payer MEDICARE, SELFPAY ==
[2022-10-09 10:23] LABS: Basophils Absolute Auto 0.1 K/mm3 (0.0-0.1); Basophils Percent Auto 1.4 % (0.2-1.2); Eosinophils Absolute Auto 0.1 K/mm3 (0-0.3); Eosinophils Percent Auto 2.1 % (0-4.4); Hematocrit 37.4 % (37.0-47.0); Lymphocytes Percent Auto 44.6 % (18.3-44.2); Mean Corpuscular HGB Conc 32.1 g/dl (32-36); Mean Corpuscular Hemoglobin 30.5 pg (26-34); Mean Corpuscular Volume 94.9 fl (80-100); Mean Platelet Volume 11.4 fl (7.4-10.4); Monocytes Absolute Auto 0.4 K/mm3 (0.1-0.6); Monocytes Percent Auto 9.4 % (2.6-8.5); Neutrophils Absolute Auto 1.8 K/mm3 (1.3-6.7); Neutrophils Percent Auto 42.5 % (45.5-73.1); Platelet Count Result 181 k/mm3 (150-375); Red Blood Count 3.94 M/mm3 (4.2-5.4); Red Cell Distribution Width 14.2 % (11.5-14.5); White Blood Count 4.3 K/mm3 (4.5-10.0)
[2022-10-09 10:48] LABS: Alanine Aminotransferase 18 U/L (6-35); Alkaline Phosphatase 48 U/L (38-126); Anion Gap 4 mmol/L (8-16); Aspartate Amino Transferase 22 U/L (14-36); Bilirubin,Total 0.5 mg/dL (0.2-1.3); Blood Urea Nitrogen 13 mg/dL (7-17); Calcium 8.9 mg/dL (8.4-10.2); Carbon Dioxide 31 mmol/L (22-30); Chloride 102 mmol/L (98-107); Cholesterol 171 mg/dL (0-200); Estimated Glomerular Filt Rate > 60; Glucose 87 mg/dL (65-110); HDL Direct 71 mg/dL; Potassium 4.2 mmol/L (3.4-5.0); Sodium 137 mmol/L (137-145); Triglycerides 47 mg/dL (<150)
[2022-10-09 10:49] LABS: LDL Cholesterol Direct 66 mg/dL
[2022-10-09 12:07] LABS: Free T4 Free Thyroxine 1.08 ng/mL (0.78-2.19); Vitamin D 25 Hydroxy 46.1 ng/mL
== END 2022-10-09 09:58 | disposition home or self-care (01) ==
PROVIDERS: PCP Internal Medicine; Visit Provider Internal Medicine
DX: E78.2 Mixed hyperlipidemia (principal); I10 Essential (primary) hypertension; R79.89 Other specified abnormal findings of blood chemistry; E55.9 Vitamin D deficiency, unspecified
CPT/HCPCS: 36415; 80053; 80061; 82306; 84439; 84443; 85025

== ENCOUNTER 2022-11-12 15:02 | Outpatient (CLI) | payer MEDICARE, SELFPAY ==
--- NOTE | ~2022-11-12 | DEXA_ITS ---
Bone Density Report Name: JAIDEN LIM Age: 77 Sex: Female Ethnicity: White Date of : 1945 Indication: postmenopausal; screening for osteoporosis; Referring Provider: MARINO CASTELLANOS Study: Bone densitometry was performed. Exam Date: November 12, 2022 Accession number: [id number] Bone Density: Region BMD T-score Z-score Classification AP Spine(L1-L4) 0.781 -2.4 0.1 Osteopenia Femoral Neck (Left) 0.614 -2.1 0.0 Osteopenia Total Hip (Left) 0.797 -1.2 0.7 Osteopenia Femoral Neck (Right) 0.675 -1.6 0.6 Osteopenia Total Hip (Right) 0.773 -1.4 0.5 Osteopenia Total Hip Mean 0.785 -1.3 0.6 Osteopenia World Health Organization criteria for BMD impression classify patients as: Normal (T-score at or above -1.0), Osteopenia (T-score between -1.0 and -2.5), or Osteoporosis (T-score at or below -2.5). 10-year Fracture Risk(1): Major Osteoporotic Fracture 13% Hip Fracture 3.7% Reported Risk Factors: [place] (), Neck BMD=0.614, BMI=22.4 (1) FRAX(R) Version 3.08. Fracture probability calculated for an untreated patient. Fracture probability may be lower if the patient has received treatment. Clinical Information Provided by Patient: Has used the following medications: Fosamax (i.e. alendronate), Vitamin D Patient maximum height was 66.5 Menopause Age: 41 Drinks caffeinated beverages Onset of menses at age 16 Number of children 1 Impression: The patient has low bone mass, based on the Total Spine T-score. The patient has an estimated ten-year risk of hip fracture of 3.7% and an estimated ten-year risk of major fracture of 13%, based on the WHO FRAX algorithm. Discussion: BONE DENSITY IS LOW AT ONE OR MORE SKELETAL SITES. THE PATIENT'S BMD AND CLINICAL RISK FACTORS CONTRIBUTE TO THIS PATIENT'S INCREASED RISK OF FRACTURE. This patient's lowest T-score is low at one or more skeletal sites. It meets the World Health Organization's (WHO) criteria for ?low bone mass? (T-score between -1.0 and -2.5). The patient's 10-year risk of hip fracture as calculated by FRAX exceeds the threshold where pharmacological therapy is recommended by the National Osteoporosis Foundation (NOF). However, all treatment decisions require clinical judgment and consideration of individual patient factors, including patient preferences, comorbidities, previous drug use, risk factors not captured in the FRAX model (e.g., frailty, falls, vitamin D deficiency, increased bone turnover, interval significant decline in bone density) and possible under or overestimation of fracture risk by FRAX. The patient should follow a healthful lifestyle (good nutrition with adequate calcium and vitamin D, and appropriate weight-bearing exercise). Follow-Up: Consider a repeat BMD and Vertebral Fracture Assessment (VFA)
== END 2022-11-12 15:03 | disposition home or self-care (01) ==
LOC: ANHIMG 15:03
PROVIDERS: PCP Internal Medicine; Visit Provider Internal Medicine
DX: Z78.0 Asymptomatic menopausal state (principal); M85.89 Other specified disorders of bone density and structure, multiple sites
CPT/HCPCS: 77080

== ENCOUNTER 2022-12-17 10:51 | Outpatient (CLI) | payer MEDICARE, SELFPAY ==
--- NOTE | ~2022-12-17 | XR_ITS ---
XR shoulder LT min 2V DATE: 12/17/2022 11:19 INDICATION: Left arm pain TECHNIQUE: 4 views COMPARISON: 08/10/2019 left shoulder FINDINGS: There is levoscoliosis of the upper thoracic spine. There is osteopenia. No fracture or dislocation, periosteal reaction or bone destruction or abnormal soft tissue calcifica tion of the left shoulder. IMPRESSION: Osteopenia Levoscoliosis of the upper thoracic spine No significant abnormality of the left shoulder Reviewed, dictated and finalized at location B.
--- NOTE | ~2022-12-17 | XR_ITS ---
XR chest 2V DATE: 12/17/2022 11:18 INDICATION: Left arm pain. TECHNIQUE: PA and lateral views COMPARISON: None FINDINGS: Bilateral hyperinflation. No pulmonary infiltrate or consolidation, pleural effusion or pul monary vascular congestion or pneumothorax. Normal heart size. No hilar or mediastinal enlargement. Osteopenia. IMPRESSION: Bilateral hyperinflation; no active cardiopulmonary disease or significant change since Reviewed, dictated and finalized at location B. IMPRESSION: Bilateral hyperinflation; no active cardiopulmonary disease or sign ificant change since 05/17/2011
--- NOTE | ~2022-12-17 | XR_ITS ---
XR humerus LT DATE: 12/17/2022 11:18 INDICATION: Left arm pain TECHNIQUE: AP and lateral views COMPARISON: None FINDINGS: There is osteopenia. No fracture or dislocation, periosteal reaction or bone destruction. N ormal alignment at the acromioclavicular, glenohumeral and elbow joints. IMPRESSION: Osteopenia; otherwise negative Reviewed, dictated and finalized at location B.
--- NOTE | ~2022-12-17 | XR_ITS ---
XR forearm LT 2V DATE: 12/17/2022 11:18 INDICATION: Left arm pain TECHNIQUE: AP and lateral views COMPARISON: None FINDINGS: No fracture or dislocation, periosteal reaction or bone destruction. Normal alignment at th e elbow and wrist joints. IMPRESSION: Negative Reviewed, dictated and finalized at location B. IMPRESSION: Negative
== END 2022-12-17 10:52 | disposition home or self-care (01) ==
PROVIDERS: PCP Internal Medicine; Visit Provider Internal Medicine
DX: R91.8 Other nonspecific abnormal finding of lung field (principal); M85.812 Other specified disorders of bone density and structure, left shoulder; M85.822 Other specified disorders of bone density and structure, left upper arm
CPT/HCPCS: 71046; 73030; 73060; 73090

== ENCOUNTER 2023-01-01 10:06 | Outpatient (CLI) | payer MEDICARE, SELFPAY ==
--- NOTE | 2023-01-01 10:11 | EST_ITS ---
Patient Info Name: Lila Matt Age: 77 years : 1945 Gender: Female Ht: 66 in Wt: 136 lbs BSA: 1.70 m2 HR: 65 bpm BP: 162 / 98 mmHg Heart Rhythm: Sinus Rhythm Exam Date: 01/01/2023 10:40 AM Exam Location: [facility] Stress Patient Status: Outpatient Admit Date: 01/01/2023 Staff Ordering Physician: Robert Langford MD Attending Provider: Robert Langford MD Exercise Technologist: Cris Robison CT Exercise Physician: Miguel Koroma DO Exam Type: CA stress test treadmill Study Info Indications R07.89 - Other chest pain R06.09 - Other forms of dyspnea A treadmill exercise stress test was performed. Summary 1. 1. Negative Lucas exercise stress test for ischemic ST changes by ECG criteria. 2. 2. Good functional capacity, achieving 7 METs of workload. 3. 3. Transient atrial tachycardia at peak exercise. 4. 4. Appropriate HR response to exercise. 5. 5. Appropriate HR recovery at 1 minute post exercise. 6. 6. No imaging with stress testing. 7. 7. Patient informed of the above results. Protocol: Lucas Stress ECG Details Stage: REST Duration (min): 1 min : 47 sec Speed (mph): 0.0 Grade (%): 0 HR (bpm): 65 SBP (mmHg): 169 DBP (mmHg): 84 METS: --- Stage: REST Duration (min): 4 min : 55 sec Speed (mph): 0.0 Grade (%): 0 HR (bpm): 67 SBP (mmHg): 162 DBP (mmHg): 86 METS: --- Stage: STAGE 1 Duration (min): 1 min : 0 sec Speed (mph): 1.7 Grade (%): 10 HR (bpm): 83 SBP (mmHg): 162 DBP (mmHg): 86 METS: --- Stage: STAGE 1 Duration (min): 2 min : 0 sec Speed (mph): 1.7 Grade (%): 10 HR (bpm): 96 SBP (mmHg): 162 DBP (mmHg): 86 METS: --- Stage: STAGE 1 Duration (min): 3 min : 0 sec Speed (mph): 1.7 Grade (%): 10 HR (bpm): 100 SBP (mmHg): 155 DBP (mmHg): 77 METS: --- Stage: STAGE 2 Duration (min): 1 min : 0 sec Speed (mph): 2.5 Grade (%): 12 HR (bpm): 110 SBP (mmHg): 155 DBP (mmHg): 77 METS: --- Stage: STAGE 2 Duration (min): 2 min : 0 sec Speed (mph): 2.5 Grade (%): 12 HR (bpm): 115 SBP (mmHg): 161 DBP (mmHg): 78 METS: --- Stage: STAGE 2 Duration (min): 2 min : 37 sec Speed (mph): 2.5 Grade (%): 12 HR (bpm): 134 SBP (mmHg): 161 DBP (mmHg): 78 METS: --- Stage: RECOVERY Duration (min): 0 min : 22 sec Speed (mph): 0.0 Grade (%): 0 HR (bpm): 132 SBP (mmHg): 161 DBP (mmHg): 78 METS: --- Stage: RECOVERY Duration (min): 1 min : 22 sec Speed (mph): 0.0 Grade (%): 0 HR (bpm): 101 SBP (mmHg): 161 DBP (mmHg): 78 METS: --- Stage: RECOVERY Duration (min): 2 min : 22 sec Speed (mph): 0.0 Grade (%): 0 HR (bpm): 82 SBP (mmHg): 161 DBP (mmHg): 78 METS: --- Stage: RECOVERY Duration (min): 3 min : 2 sec Speed (mph): 0.0 Grade (%): 0 HR (bpm): 79 S
== END 2023-01-01 10:07 | disposition home or self-care (01) ==
LOC: ANHCARD 10:07
PROVIDERS: PCP Internal Medicine; Visit Provider Internal Medicine
DX: R06.09 Other forms of dyspnea (principal); R06.02 Shortness of breath; R07.89 Other chest pain
CPT/HCPCS: 93017

== ENCOUNTER 2023-02-13 09:59 | Outpatient (CLI) | payer MEDICARE, SELFPAY ==
[2023-02-13 10:15] LABS: Basophils Absolute Auto 0.1 K/mm3 (0.0-0.1); Basophils Percent Auto 1.4 % (0.2-1.2); Eosinophils Absolute Auto 0.1 K/mm3 (0-0.3); Eosinophils Percent Auto 2.5 % (0-4.4); Hematocrit 39.3 % (37.0-47.0); Hemoglobin 12.7 g/dL (12.0-15.0); Immature Granulocyte Absolute 0.01 K/mm3 (0.00-0.031); Immature Granulocyte Percent A 0.2 % (0-0.5); Lymphocytes Absolute Auto 1.73 K/mm3 (0.9-3.2); Lymphocytes Percent Auto 39.5 % (18.3-44.2); Mean Corpuscular HGB Conc 32.3 g/dl (32-36); Mean Corpuscular Hemoglobin 30.8 pg (26-34); Mean Corpuscular Volume 95.4 fl (80-100); Mean Platelet Volume 10.6 fl (7.4-10.4); Monocytes Absolute Auto 0.4 K/mm3 (0.1-0.6); Monocytes Percent Auto 9.8 % (2.6-8.5); Neutrophils Percent Auto 46.6 % (45.5-73.1); Platelet Count Result 218 k/mm3 (150-375); Red Blood Count 4.12 M/mm3 (4.2-5.4); Red Cell Distribution Width 14.2 % (11.5-14.5); White Blood Count 4.4 K/mm3 (4.5-10.0)
[2023-02-13 10:32] LABS: Hemoglobin A1C 5.2 % (<5.7)
[2023-02-13 10:33] LABS: Alanine Aminotransferase 17 U/L (6-35); Albumin Level 4.4 g/dL (3.5-5.1); Alkaline Phosphatase 49 U/L (38-126); Anion Gap 7 mmol/L (8-16); Aspartate Amino Transferase 23 U/L (14-36); Bilirubin,Total 0.9 mg/dL (0.2-1.3); Blood Urea Nitrogen 18 mg/dL (7-17); Calcium 8.8 mg/dL (8.4-10.2); Carbon Dioxide 29 mmol/L (22-30); Chloride 103 mmol/L (98-107); Cholesterol 184 mg/dL (0-200); Estimated Glomerular Filt Rate > 60; Glucose 93 mg/dL (65-110); HDL Direct 88 mg/dL; Potassium 4.1 mmol/L (3.4-5.0); Sodium 139 mmol/L (137-145); Triglycerides 49 mg/dL (<150)
[2023-02-13 10:44] LABS: LDL Cholesterol Direct 79 mg/dL
[2023-02-13 10:49] LABS: Free T4 Free Thyroxine 1.29 ng/mL (0.78-2.19)
== END 2023-02-13 10:00 | disposition home or self-care (01) ==
PROVIDERS: PCP Internal Medicine; Visit Provider Internal Medicine
DX: R73.09 Other abnormal glucose (principal); I10 Essential (primary) hypertension; E78.2 Mixed hyperlipidemia; R79.89 Other specified abnormal findings of blood chemistry
CPT/HCPCS: 36415; 80053; 80061; 83036; 84439; 84443; 85025

== ENCOUNTER 2023-04-30 12:32 | Outpatient (CLI) | payer MEDICARE, SELFPAY ==
--- NOTE | ~2023-04-30 | US_ITS ---
EXAMINATION: US venous doppler LE RT DATE: 04/30/2023 13:25 INDICATION: Chest pain TECHNIQUE: Grayscale ultrasound images without and with compression and Doppler ultrasound images of the right lower extremity veins were obtained. COMPARISON: None. FINDINGS: The visualized portions of right common femoral vein, profunda (deep) femoral vein, femoral vein, pop liteal vein, peroneal trunk, posterior tibial veins, peroneal veins, gastrocnemius vein and greater s aphenous vein outflow are patent. IMPRESSION: 1. No deep venous thrombosis in the right lower limb. Reviewed, dictated and finalized at location L.
--- NOTE | ~2023-04-30 | XR_ITS ---
EXAMINATION: XR knee RT min 4V DATE: 04/30/2023 12:50 INDICATION: Right knee pain and swelling TECHNIQUE: Anteroposterior, 2 oblique and crosstable lateral views of the right knee were obtained COMPARISON: None. FINDINGS: Alignment is normal. No fracture. Joint spaces appear normal on nonweightbearing imaging. There are however small marginal osteophytes all 3 compartments consistent with at least mild tricompartmental osteoarthritis. No joint effusion/layering lipohemarthrosis. Soft tissues are unremarkable. IMPRESSION: 1. At least mild tricompartmental osteoarthritis at the right knee with no joint effusion or acute os seous abnormality. Reviewed, dictated and finalized at location L. IMPRESSION: 1. At least mild tricompartmental osteoarthritis at the right knee with no join t effusion or acute osseous abnormality.
[2023-04-30 13:27] LABS: Iron 64 ug/dL (37-170)
[2023-04-30 13:36] LABS: Percent Iron Saturation 19 % (20-50)
== END 2023-04-30 12:33 | disposition home or self-care (01) ==
LOC: ANHIMG 12:34
PROVIDERS: PCP Internal Medicine; Visit Provider Internal Medicine
DX: R53.83 Other fatigue (principal); M25.461 Effusion, right knee; R07.89 Other chest pain; M17.11 Unilateral primary osteoarthritis, right knee; M25.561 Pain in right knee
CPT/HCPCS: 36415; 73564; 82728; 83540; 83550; 93971

== ENCOUNTER 2023-08-27 09:22 | Outpatient (CLI) | payer MEDICARE, SELFPAY ==
[2023-08-27 19:41] LABS: Alanine Aminotransferase 17 U/L (6-35); Albumin Level 4.1 g/dL (3.5-5.1); Alkaline Phosphatase 49 U/L (38-126); Anion Gap 8 mmol/L (8-16); Aspartate Amino Transferase 24 U/L (14-36); Bilirubin,Total 0.8 mg/dL (0.2-1.3); Blood Urea Nitrogen 18 mg/dL (7-17); Calcium 9.1 mg/dL (8.4-10.2); Carbon Dioxide 30 mmol/L (22-30); Chloride 102 mmol/L (98-107); Cholesterol 182 mg/dL (0-200); Estimated Glomerular Filt Rate > 60; Glucose 88 mg/dL (65-110); HDL Direct 74 mg/dL; Potassium 3.7 mmol/L (3.4-5.0); Sodium 140 mmol/L (137-145); Triglycerides 60 mg/dL (<150)
[2023-08-27 19:52] LABS: LDL Cholesterol Direct 83 mg/dL
[2023-08-27 20:07] LABS: Vitamin D 25 Hydroxy 39.8 ng/mL
== END 2023-08-27 09:23 | disposition home or self-care (01) ==
PROVIDERS: PCP Internal Medicine; Visit Provider Internal Medicine
DX: E55.9 Vitamin D deficiency, unspecified (principal); E78.2 Mixed hyperlipidemia; I10 Essential (primary) hypertension; Z79.899 Other long term (current) drug therapy
CPT/HCPCS: 36415; 80053; 80061; 82306

== ENCOUNTER 2024-01-02 10:03 | Outpatient (CLI) | payer MEDICARE, SELFPAY ==
[2024-01-02 12:11] LABS: Basophils Absolute Auto 0.1 K/mm3 (0.0-0.1); Basophils Percent Auto 1.3 % (0.2-1.2); Eosinophils Absolute Auto 0.1 K/mm3 (0-0.3); Eosinophils Percent Auto 2.6 % (0-4.4); Hematocrit 39.5 % (37.0-47.0); Hemoglobin 12.6 g/dL (12.0-15.0); Lymphocytes Absolute Auto 2.32 K/mm3 (0.9-3.2); Lymphocytes Percent Auto 50.2 % (18.3-44.2); Mean Corpuscular HGB Conc 31.9 g/dl (32-36); Mean Corpuscular Hemoglobin 30.7 pg (26-34); Mean Corpuscular Volume 96.3 fl (80-100); Mean Platelet Volume 11.5 fl (7.4-10.4); Monocytes Absolute Auto 0.4 K/mm3 (0.1-0.6); Monocytes Percent Auto 8.2 % (2.6-8.5); Neutrophils Absolute Auto 1.7 K/mm3 (1.3-6.7); Neutrophils Percent Auto 37.7 % (45.5-73.1); Platelet Count Result 197 k/mm3 (150-375); Red Cell Distribution Width 14.3 % (11.5-14.5); White Blood Count 4.6 K/mm3 (4.5-10.0)
[2024-01-02 12:26] LABS: Alanine Aminotransferase 20 U/L (6-35); Albumin Level 4.3 g/dL (3.5-5.1); Alkaline Phosphatase 48 U/L (38-126); Anion Gap 4 mmol/L (4-12); Aspartate Amino Transferase 47 U/L (14-36); Bilirubin,Total 0.9 mg/dL (0.2-1.3); Blood Urea Nitrogen 21 mg/dL (7-17); Calcium 9.3 mg/dL (8.4-10.2); Carbon Dioxide 31 mmol/L (22-30); Chloride 106 mmol/L (98-107); Cholesterol 178 mg/dL (0-200); Estimated Glomerular Filt Rate > 60; Glucose 93 mg/dL (65-110); HDL Direct 78 mg/dL; Sodium 141 mmol/L (137-145); Triglycerides 54 mg/dL (<150)
[2024-01-02 12:37] LABS: LDL Cholesterol Direct 82 mg/dL
[2024-01-02 12:52] LABS: Thyroid Stimulating Hormone 0.279 uIU/mL (0.465-4.680)
[2024-01-02 13:29] LABS: Free T4 Free Thyroxine 1.03 ng/mL (0.78-2.19)
[2024-01-02 22:46] LABS: Hemoglobin A1C 5.1 % (<5.7)
== END 2024-01-02 10:04 | disposition home or self-care (01) ==
PROVIDERS: PCP Internal Medicine; Visit Provider Internal Medicine
DX: R73.09 Other abnormal glucose (principal); Z79.899 Other long term (current) drug therapy; E01.0 Iodine-deficiency related diffuse (endemic) goiter; Z13.29 Encounter for screening for other suspected endocrine disorder; E78.2 Mixed hyperlipidemia; I10 Essential (primary) hypertension; R79.89 Other specified abnormal findings of blood chemistry
CPT/HCPCS: 36415; 80053; 80061; 83036; 84439; 84443; 85025

== ENCOUNTER 2024-01-30 12:35 | Outpatient (CLI) | payer MEDICARE, SELFPAY ==
--- NOTE | ~2024-01-30 | XR_ITS ---
EXAMINATION: XR lumbar spine 2-3V DATE: 01/30/2024 13:22 INDICATION: Low back pain, unspecified. TECHNIQUE: 3 views of lumbar spine were obtained. COMPARISON: Lumbar spine radiographs 06/15/2004 FINDINGS: There is 7 degrees levocurvature of thoracic and lumbar spine. Vertebral body heights are n ormal. There is severely decreased disc height at L5-S1. There is multilevel facet joint osteoarthrit is, severe in lower lumbar spine. IMPRESSION: 1. Severe lower lumbar spondylosis. Reviewed, dictated and finalized at location A.
--- NOTE | ~2024-01-30 | XR_ITS ---
EXAMINATION: XR hip LT 2V w AP pelvis DATE: 01/30/2024 13:22 INDICATION: Pain in unspecified hip. TECHNIQUE: An anteroposterior view of the pelvis and 2 views of left hip were obtained. COMPARISON: Pelvis and left hip radiograph 02/26/2007 FINDINGS: There is lumbar levocurvature and severe spondylosis. No fracture. There is mild osteoarthr itis of the hips. IMPRESSION: 1. Mild osteoarthritis of the hips. Reviewed, dictated and finalized at location A.
== END 2024-01-30 12:36 ==
PROVIDERS: PCP Internal Medicine; Visit Provider Internal Medicine
DX: M43.06 Spondylolysis, lumbar region (principal); M16.0 Bilateral primary osteoarthritis of hip
CPT/HCPCS: 72100; 73502

== ENCOUNTER 2024-03-27 09:30 | Outpatient (RCR) | payer MEDICARE, SELFPAY ==
--- NOTE | 2024-02-21 13:26 | OPREHPOC ---
Outpatient Therapy Plan of Care This is a Multidisciplinary Plan of Care that may contain components documented by all disciplines (PT, OT, and ST.) PT Problem 1 PT Problem #1 Knowledge Deficit PT Goal 1 Goal *indep with HEP * correct body mechanics with lifting from floor Target Visit 8 PT Problem 2 PT Problem #2 Pain PT Goal 1 Goal 1* pt report pain of 3/10 at worst 2* self assessment Oswestry rating of 8% limitation in activity level 3* pt report with sit to stand transfer: pain does not increase Target Visit 8 PT Problem 3 PT Problem #3 Impaired Strength PT Goal 1 Goal increase strength of trunk and hips to stabilize spine and improve position of back 1* single leg standing R x 20 seconds with good stability 2* single leg standing L x 20 seconds with good stability 3* supine bridge x 20 reps through full ROM 4* prone hip extension R and L x 20 reps Target Visit 8
--- NOTE | 2024-02-21 13:29 | PTOPEVAL1 ---
Assessment and note entered by Berkley Fish, PT Evaluation Information Assessment Status Evaluation Diagnosis low back pain Onset about one year Subjective Information have had pain in back, off/on for past year; xray: lumbar: severe lumbar spondylosis, facet joint OA and decrease disc height x ray L hip: mild OA Activity: active, walks dog, home with - occasionally has to help pick him up off the floor when he falls; ( educated pt and demonstrated how to assist him from floor--pull on couch, chair, put belt on him and stand behind him and pull on belt) Is able to do all of her home tasks, and yard work but have more pain in back; Walks for fitness, but not any regular exercises. Reported Pain Level Pain Score Self Report Additional Pain Score Comments pain range in the past week 0-5/10; muscle pain, hurts in lateral hips and thighs to proximal to knees weird pain, cannot describe; have cramps in front of hips and inner thighs; cramps in legs-- restless leg syndrome; increase pain: after sitting and go to stand up; when first wake up in AM; decreased pain: get up and move a little bit; heat with sleeping, pain does not wake her up, but when get up to go to bathroom- has back pain and restless leg cramps educated pt on monitor sitting time--she sits in evening and watches TV; get up, walk about every 30-45 mintues to manage her pain; Assessment PT Clinical Summary Mayda has the diagnosis of low back pain. Chronic issues with back pain off/on, depending upon her activity. Reports cramping and pain in low back, lateral hips and to lateral- anterior thighs. Self assessment Oswestry rating of 12% limitation in activity. She is doing all of her required home and self care tasks with increase pain sometimes. x rays of lumbar spine-severe lumbar spondylosis and L hip mild OA. With the evaluation: she has scoliosis and curvature of her spine, with weakness over trunk and hip extension; decreas
--- NOTE | 2024-03-05 12:22 | PCPTNOTE ---
Patient is out of town and needed to cancel.
--- NOTE | 2024-03-19 12:43 | PCPTNOTE ---
Mrs. Matt called to cancel her appointment today due to feeling ill. Bennie Hernández, MPT
--- NOTE | 2024-03-27 09:59 | OPREHPOC ---
Outpatient Therapy Plan of Care This is a Multidisciplinary Plan of Care that may contain components documented by all disciplines (PT, OT, and ST.) PT Problem 1 PT Problem #1 Knowledge Deficit PT Goal 1 Goal *indep with HEP * correct body mechanics with lifting from floor Target Visit 8 Progress Met PT Problem 2 PT Problem #2 Pain PT Goal 1 Goal 1* pt report pain of 3/10 at worst 2* self assessment Oswestry rating of 8% limitation in activity level 3* pt report with sit to stand transfer: pain does not increase Target Visit 8 Progress Met PT Problem 3 PT Problem #3 Impaired Strength PT Goal 1 Goal increase strength of trunk and hips to stabilize spine and improve position of back 1* single leg standing R x 20 seconds with good stability 2* single leg standing L x 20 seconds with good stability 3* supine bridge x 20 reps through full ROM 4* prone hip extension R and L x 20 reps Target Visit 8 Progress Partially Met
--- NOTE | 2024-03-27 10:00 | PTOPDC ---
Assessment and note entered by Mimi Blair DPT Evaluation Information Assessment Status Discharge Diagnosis low back pain Onset about one year Subjective Information Pt reports she is feeling much better, her hips and legs are better. Her pain overall has decreased. Highest pain in the last week 2/10 and lowest 0/10. States there is nothing she is unable to do at home. Feels ready to be done with therapy at this time. Reported Pain Level Pain Score 0: Self Report Assessment PT Clinical Summary The patient has made excellent progress in therapy . She reports greatly decreased pain to 2/10 and no functional limitations at this time. She demonstrates improved LE strength and no pain with lumbar motion. Due to her progress, plan for discharge this date. She has been educated in a thorough HEP and to follow up with MD and/or PT as needed. Plan of Care PT Services Indicated No
== END 2024-03-27 14:03 | disposition home or self-care (01) ==
LOC: ANHGOSHPT 09:30
PROVIDERS: PCP Internal Medicine; Visit Provider Internal Medicine
DX: M54.50 Low back pain, unspecified (principal); M47.816 Spondylosis without myelopathy or radiculopathy, lumbar region
CPT/HCPCS: 97110; 97140; 97161; 97530

== ENCOUNTER 2024-05-01 13:28 | Outpatient (CLI) | payer MEDICARE, SELFPAY ==
--- NOTE | ~2024-05-01 | MR_ITS ---
EXAMINATION: MR lumbar spine wo con DATE: 05/01/2024 14:18 INDICATION: Lumbar spondylosis without myelopathy radiculopathy. Low back pain. TECHNIQUE: Magnetic resonance imaging (MRI) of the lumbar spine was performed without intravenous con trast. Sequences included sagittal T2-weighted FSE, sagittal T2-weighted FS FSE, sagittal T1-weighted FSE, and axial T2-weighted FSE. COMPARISON: Lumbar spine radiographs 01/30/2024 FINDINGS: There is 8 degrees levocurvature of lumbar spine. Vertebral body heights are normal. There is mildly decreased disc height at L3-L4 and L4-L5 and severely decreased disc height at L5-S1. The d istal spinal cord signal intensity is normal. The conus medullaris is at L1-L2. The following disc le vels are specifically discussed: L1-L2: The disc is bulging. There is mild left facet joint osteoarthritis. There is mild left neural foraminal stenosis. There is no central canal stenosis. L2-L3: The disc is mildly bulging. There is mild bilateral facet joint osteoarthritis. There is mild left neural foraminal stenosis. There is no central canal stenosis. L3-L4: The disc is bulging. There is mild bilateral facet joint osteoarthritis. There is mild bilater al neural foraminal stenosis. There is mild central canal stenosis. L4-L5: The disc is bulging and has an annular fissure. There is severe bilateral facet joint osteoart hritis. There is mild bilateral neural foraminal stenosis. There is mild central canal stenosis. L5-S1: The disc is bulging and has an annular fissure. There is severe bilateral facet joint osteoart hritis. There is mild bilateral neural foraminal stenosis. There is mild central canal stenosis. IMPRESSION: 1. Severe lower lumbar spondylosis. Reviewed, dictated and finalized at location A.
== END 2024-05-01 13:29 ==
LOC: GOSHIMG 13:29
PROVIDERS: PCP Internal Medicine; Visit Provider Internal Medicine
DX: M47.816 Spondylosis without myelopathy or radiculopathy, lumbar region (principal)
CPT/HCPCS: 72148

== ENCOUNTER 2024-08-28 10:45 | Outpatient (CLI) | payer MEDICARE, SELFPAY ==
[2024-08-28 15:09] LABS: Alanine Aminotransferase 19 U/L (6-35); Albumin Level 4.3 g/dL (3.5-5.1); Alkaline Phosphatase 50 U/L (38-126); Anion Gap 4 mmol/L (4-12); Aspartate Amino Transferase 40 U/L (14-36); Bilirubin,Total 0.7 mg/dL (0.2-1.3); Blood Urea Nitrogen 20 mg/dL (7-17); Calcium 9.4 mg/dL (8.4-10.2); Carbon Dioxide 32 mmol/L (22-30); Chloride 103 mmol/L (98-107); Cholesterol 194 mg/dL (0-200); Estimated Glomerular Filt Rate > 60; Glucose 74 mg/dL (65-110); HDL Direct 84 mg/dL; Potassium 4.3 mmol/L (3.4-5.0); Sodium 139 mmol/L (137-145); Triglycerides 60 mg/dL (<150)
[2024-08-28 15:20] LABS: LDL Cholesterol Direct 80 mg/dL
== END 2024-08-28 10:46 | disposition home or self-care (01) ==
LOC: ANHGOSHLAB 10:46
PROVIDERS: PCP Internal Medicine; Visit Provider Internal Medicine
DX: E55.9 Vitamin D deficiency, unspecified (principal); E78.2 Mixed hyperlipidemia; I10 Essential (primary) hypertension; Z79.899 Other long term (current) drug therapy
CPT/HCPCS: 36415; 80053; 80061; 82306

== ENCOUNTER 2024-09-24 10:29 | Outpatient (CLI) | payer MEDICARE, SELFPAY ==
--- NOTE | ~2024-09-24 | XR_ITS ---
HISTORY: M25.512 - Pain in left shoulder personal history of melanoma COMPARISON: None TECHNIQUE: 2 views of the left shoulder FINDINGS: No acute fracture. The glenohumeral joint space is maintained. Borderline widening of the acromioclavicular joint space is present suggesting acromioclavicular join t space injury. The visualized portion of the adjacent left lung is clear. The humeral head is well seated within the glenoid fossa. IMPRESSION: No acute fracture or anterior dislocation. Findings suggesting acromioclavicular joint space injury, as detailed above. Reviewed, dictated and finalized at location A. CY DIRECTOR
--- NOTE | ~2024-09-24 | XR_ITS ---
[id number] Ordering provider: Robert Langford MD History: . M25.512 - Pain in left shoulder . Comparison: None. FINDINGS: VERTEBRAL BODIES: Normal height and alignment. No visible fracture or subluxation. The dens is intact . DISK SPACES: Narrowing of the disc C4-C5, C5-C6 and C6-C7. Multilevel uncovertebral joint osteoarthri tic changes. Multilevel facet joint disease in the uterus. No PARASPINOUS SOFT TISSUES: No prevertebral soft tissue swelling. IMPRESSION: No acute osseous abnormality cervical spine. Multilevel degenerative disc disease. Reviewed, dictated and finalized at location A. RITY AMBASSADOR
== END 2024-09-24 10:30 | disposition home or self-care (01) ==
LOC: GOSHIMG 10:30
PROVIDERS: PCP Internal Medicine; Visit Provider Internal Medicine
DX: M50.321 Other cervical disc degeneration at C4-C5 level (principal); M50.322 Other cervical disc degeneration at C5-C6 level; M50.323 Other cervical disc degeneration at C6-C7 level
CPT/HCPCS: 72040; 73030

== ENCOUNTER 2024-11-27 13:09 | Outpatient (CLI) | payer MEDICARE, SELFPAY ==
--- NOTE | ~2024-11-27 | MR_ITS ---
EXAMINATION: MR shoulder LT wo con DATE: 11/27/2024 13:50 INDICATION: Pain in left shoulder. TECHNIQUE: Magnetic resonance imaging (MRI) of the left shoulder was performed without intravenous co ntrast. Sequences included axial PD-weighted FS FSE, coronal oblique PD-weighted FS FSE and T2-weight ed FS FSE, and sagittal oblique T2-weighted FS FSE and T1-weighted FSE. COMPARISON: Left shoulder radiographs 09/24/2024 FINDINGS: Coracoacromial arch: The acromion undersurface is curved in morphology (type II). There is severe acromioclavicular joint osteoarthritis. There is moderate subacromial/subdeltoid bursitis. Rotator cuff: There is severe supraspinatus and infraspinatus tendinopathy. There is an articular sided partial-thi ckness tear of the conjoined portion of the tendon measuring 5 mm anterior to posterior by 7 mm proxi mal to distal by less than 20% thickness. Teres minor tendon is normal. There is mild subscapularis t endinopathy. There is no asymmetric fatty atrophy of the rotator cuff muscle bellies. Biceps tendon and glenoid labrum: Biceps tendon is in bicipital groove. There is mild intra-articular biceps tendinopathy. The glenoid labrum is intact. Fluid: There is no glenohumeral joint effusion. Bones/cartilage: There is cartilage surface irregularity of glenoid and humeral head. IMPRESSION: 1. Severe rotator cuff tendinopathy with partial-thickness articular-sided tear of the conjoined port ion of supraspinatus and infraspinatus tendons. 2. Severe acromioclavicular joint osteoarthritis. 3. Moderate subacromial/subdeltoid bursitis. 4. Mild glenohumeral joint chondrosis. 5. Mild intra-articular biceps tendinopathy. Reviewed, dictated and finalized at location A. DISPATCHER IMPRESSION: 1. Severe rotator cuff tendinopathy with partial-thickness articular-sided tear of the conjoined portion of supraspinatus and infraspinatus tendons. 2. Severe acromioclavicular joint osteoarthritis. 3. Moderate subacromial/subdeltoid bursitis. 4. Mild glenohumeral joint chondrosis. 5. Mild intra-articular biceps tendinopathy.
== END 2024-11-27 13:10 | disposition home or self-care (01) ==
LOC: GOSHIMG 13:10
PROVIDERS: PCP Internal Medicine; Visit Provider Internal Medicine
DX: M77.8 Other enthesopathies, not elsewhere classified (principal); M75.112 Incomplete rotator cuff tear or rupture of left shoulder, not specified as traumatic; M19.012 Primary osteoarthritis, left shoulder; M75.52 Bursitis of left shoulder; M94.212 Chondromalacia, left shoulder; M75.22 Bicipital tendinitis, left shoulder
CPT/HCPCS: 73221

== ENCOUNTER 2025-01-05 10:07 | Outpatient (CLI) | payer MEDICARE, SELFPAY ==
--- OUTSIDE RECORDS SUMMARY | 2025-01-05 11:01 | XMS_ITS | Referral Summary ---
Author Organization [facility] Address [address] [place] [address] Care Team Providers Care Frame Cleaner Name Role Phone Robert Langford MD Primary Care Provider [phone] Encounters Date Type Department Care Team Description 10/24/2024 1:39 PM PRODUCTION TEAM ADVISOR - 10/24/2024 11:59 PM PRODUCTION TEAM ADVISOR Hospital Encounter [facility] [address] [place] [address] Screening mammogram, encounter for Discharge Disposition: Discharge to home or self care from Last 3 Months Allergies Active Allergy Reactions Criticality Noted Date Comments Venom-Honey Bee Unknown 03/08/2020 Sulfa (Sulfonamide Antibiotics) Unknown 02/21 Social History Tobacco Use Types Packs/Day Years Used Date Smoking Tobacco: Never Assessed Comments No Sex and Gender Information Value Date Recorded Sex Assigned at Not on file Legal Sex Female 3:52 PM PRODUCTION TEAM ADVISOR Gender Identity Not on file Sexual Orientation Not on file Last Filed Vital Signs Vital Sign Reading Time Taken Comments Blood Pressure - - Pulse - - Temperature - - Respiratory Rate - - Oxygen Saturation - - Inhaled Oxygen Concentration - - Weight 63.5 kg (140 lb) 01/14/2018 12:38 PM CDT Height 165.1 cm (5' 5 ) 05/14/2023 1:09 PM CDT Body Mass Index 22.6 01/14/2018 12:38 PM CDT Plan of Treatment Not on file Procedures Procedure Name Priority Date/Time Associated Diagnosis Comments SCREENING MAMMOGRAM BILATERAL W JESUS Schedule Routine, Read Routine (OP Routine) 10/24/2024 1:56 PM PRODUCTION TEAM ADVISOR Screening mammogram, encounter for from Last 3 Months Results * Screening Mammogram Bilateral W Jesus (10/24/2024 1:56 PM PRODUCTION TEAM ADVISOR) Anatomical Region Laterality Modality Breast Bilateral Mammography 10/26/2024 8:35 AM PRODUCTION TEAM ADVISOR Impressions 10/26/2024 8:35 AM PRODUCTION TEAM ADVISOR No evidence of malignancy in either breast. FINAL ASSESSMENT: BI-RADS Category 1: Negative. RECOMMENDATION: Recommend return for annual screening mammogram in 12 months. Electronically signed by: Cliff Ferris M.D. Narrative 10/26/2024 8:35 AM PRODUCTION TEAM ADVISOR EXAMINATION: BILATERAL SCREENING MAMMOGRAM COMPARISON: 05/14/2023, 03/05/2022, 08/19/2020 TECHNIQUE: Full-field 2D and digital breast tomosynthesis (DBT) images were obtained. CAD was utilized. BREAST PARENCHYMAL COMPOSITION: There are scattered areas of fibroglandular density. FINDINGS: There is no suspicious mass, calcification, or distortion in either breast. us Self Screening Mammogram IMG MAMMO PROCEDURES Fi nal Result from Last 3 Months Insurance MEDICARE [facility] MEDICARE [facility] MEDICARE SUPPLEMENT Care Teams Frame Cleaner Relationship Specialty Start Date End Date Robert Langford MD [address] [employer] [place], [place] [id number] PCP - General 01/01/17
--- OUTSIDE RECORDS SUMMARY | 2025-01-05 11:01 | XMS_ITS | Clinical Summary ---
Author Organization [facility] Address [address] [facility] [place] [address] Phone Care Team Providers Care Geriatrics Physician Name Role Phone Robert Langford MD Primary Care Provider + Allergies Active Allergy Reactions Criticality Noted Date Comments Sulfa (Sulfonamide Antibiotics) Unknown 02/21 Venom-Honey Bee Unknown 03/08/2020 Medications amLODIPine-benaz epril (LOTREL) 5-20 mg capsule TK 1 C PO QD 02/10/2020 Active metoprolol succinate (TOPROL XL) 50 mg Extended Release 24 hour tablet TK 1 T PO D 02/23/2020 Active pravastatin (PRAVACHOL) 40 mg tablet TK 1 T PO D 12/31/2019 Active cholecalciferol, Vitamin D3, (Vitamin D3) 25 mcg (1,000 unit) Capsule Take by mouth daily. Active cyanocobalamin, vitamin B-12, (VITAMIN B12 ORAL) Take by mouth. Active CRANBERRY ORAL Take by mouth. Active aspirin (NAV CHEWABLE) 81 mg Tablet, Chewable Take 81 mg by mouth daily. Active famotidine (PEPCID) 20 mg tablet Take 20 mg by mouth 2 times daily. Active Active Problems Patient Care Coordination No te Formatting of this note migh t be different from the original. Cameron Gregorio MD--Drier And Pulverizer Tender ([facility] @ ) Problem Noted Date Diagnosed Date Other chest pain 03/11/2020 Essential hypertension 03/11/2020 Mixed hyperlipidemia 03/11/2020 Immunizations Immunization Administration Dates Next Due Influenza Seasonal Unspecified Formulation IM Family History Medical History Relation Name Comments Heart Disease Father Heart Disease Mother Relation Name Status Comments Father Mother Social History Tobacco Use Types Packs/Day Years Used Date Smoking Tobacco: Former Cigarettes 1 10 1 239 1988 Smokeless Tobacco: Never Alcohol Use Standard Drinks/Week Comments Not Currently 0 (1 standard drink = 0.6 oz pur e alcohol) Comments Unknown Sex and Gender Information Value Date Recorded Sex Assigned at Not on file Legal Sex Female 1:41 PM CDT Gender Identity Not on file Sexual Orientation Not on file Last Filed Vital Signs Vital Sign Reading Time Taken Comments Blood Pressure 115/51 03/14/2020 4:00 PM CDT Pulse 70 03/14/2020 12:15 PM CDT Temperature 36.9 C (98.4 F) 03/11/2020 8:07 AM CDT Respiratory Rate 14 03/14/2020 2:15 PM CDT Oxygen Saturation 100% 03/14/2020 4:15 PM CDT Inhaled Oxygen Concentration - - Weight 63.5 kg (140 lb) 03/14/2020 12:15 PM CDT Height 165.1 cm (5' 5 ) 03/14/2020 12:15 PM CDT Body Mass Index 23.3 03/14/2020 12:15 PM CDT Plan of Treatment Health Maintenance Due Date Last Done Comments DTAP/TDAP/TD VACCINES (1 - Tdap) 1965 PNEUMOCOCCAL VACCINE 50+ YEARS (1 of 1 - PCV) 04/18/19 96 ZOSTER VACCINE (1 of 2) 1996 RSV VACCINE (60+ or ) (1 - 1-dose 75+ series) 2021 INFLUENZA VACCINE (#1) 2024 07/14/2019 OSTEOPOROSIS SCREENING Completed 01/05/2016 COLORECTAL SCREENING Discontinued 06/10/2019 Colorectal Cancer Screening Discontinued FIT-DNA Q 3 years Discontinued FIT/FOBT Q 1 year Discontinued Flex Sig/CT Colonography Q 5 years Discontinued Insurance MEDICARE PART A AND B BCBS SUPP Advance Directives For more information, please contact: [phone] * Full Code (Latest Code Status on File) Date Activated Date Inactivated Comments 03/14/2020 11:40 AM 03/14/2020 8:21 PM Care Teams Geriatrics Physician Relationship Specialty Start Date End Date Robert Langford MD [address] [place] [address] PCP - General Internal Medicine 03/11/20
--- OUTSIDE RECORDS SUMMARY | 2025-01-05 11:01 | XMS_ITS | Clinical Summary ---
Author Organization [facility] Address [address] [place] [address] Care Team Providers Care 3D Artist Name Role Phone Robert Langford MD Primary Care Provider [phone] Allergies Active Allergy Reactions Criticality Noted Date Comments Venom-Honey Bee Unknown 03/08/2020 Sulfa (Sulfonamide Antibiotics) Unknown 02/21 Encounters Date Type Department Care Team Description 10/24/2024 1:39 PM SLUDGE MILL OPERATOR - 10/24/2024 11:59 PM SLUDGE MILL OPERATOR Hospital Encounter [facility] [address] [place] [address] Screening mammogram, encounter for Discharge Disposition: Discharge to home or self care from Last 3 Months Medical History Medical History Date Comments Skin cancer of arm, left Family History Medical History Relation Name Comments Thyroid cancer Mother Breast cancer Neg Hx Ovarian cancer Neg Hx Relation Name Status Comments Mother Social History Tobacco Use Types Packs/Day Years Used Date Smoking Tobacco: Never Assessed Comments No Sex and Gender Information Value Date Recorded Sex Assigned at Not on file Legal Sex Female 3:52 PM SLUDGE MILL OPERATOR Gender Identity Not on file Sexual Orientation Not on file Obstetrics History Para Term AB IAB SAB Ectopic Multiple Livin g Live Births 1 1 Date Outcome GA Total Labor Labor/2nd/3rd Weight Sex Type Anes PTL Torrie A1 A5 Name Clin Term Last Filed Vital Signs Vital Sign Reading Time Taken Comments Blood Pressure - - Pulse - - Temperature - - Respiratory Rate - - Oxygen Saturation - - Inhaled Oxygen Concentration - - Weight 63.5 kg (140 lb) 01/14/2018 12:38 PM CDT Height 165.1 cm (5' 5 ) 05/14/2023 1:09 PM CDT Body Mass Index 22.6 01/14/2018 12:38 PM CDT Plan of Treatment Health Maintenance Due Date Last Done Comments Depression Screening 1946 Fall Risk Assessment 1946 Hepatitis C Screening 1946 Osteoporosis Screening-Bone Density Scan 1946 Hepatitis B Screening 1964 Pneumococcal vaccine 65+ (1 of 1 - PCV) 1996 Zoster Vaccine (1 of 2) 1996 Well Visit 65+ 2011 Influenza Vaccine (#1) 2024 9, 07/14/2019, 07/15/2018, Additional history exists DTaP/Tdap/Td Vaccine (2 - Td or Tdap) 05/08/2026 05/08/2016 Breast Cancer Screening-Mammogram Discontinued 10/24/2024, 05/14/2023, 03/05/2022, Additional history exists Procedures Procedure Name Priority Date/Time Associated Diagnosis Comments SCREENING MAMMOGRAM BILATERAL W JESUS Schedule Routine, Read Routine (OP Routine) 10/24/2024 1:56 PM SLUDGE MILL OPERATOR Screening mammogram, encounter for from Last 3 Months Results * Screening Mammogram Bilateral W Jesus (10/24/2024 1:56 PM SLUDGE MILL OPERATOR) Anatomical Region Laterality Modality Breast Bilateral Mammography 10/26/2024 8:35 AM SLUDGE MILL OPERATOR Impressions 10/26/2024 8:35 AM SLUDGE MILL OPERATOR No evidence of malignancy in either breast. FINAL ASSESSMENT: BI-RADS Category 1: Negative. RECOMMENDATION: Recommend return for annual screening mammogram in 12 months. Electronically signed by: Cliff Ferris M.D. Narrative 10/26/2024 8:35 AM SLUDGE MILL OPERATOR EXAMINATION: BILATERAL SCREENING MAMMOGRAM COMPARISON: 05/14/2023, 03/05/2022, 08/19/2020 TECHNIQUE: Full-field 2D and digital breast tomosynthesis (DBT) images were obtained. CAD was utilized. BREAST PARENCHYMAL COMPOSITION: There are scattered areas of fibroglandular density. FINDINGS: There is no suspicious mass, calcification, or distortion in either breast. us Self Screening Mammogram IMG MAMMO PROCEDURES Fi nal Result from Last 3 Months Insurance MEDICARE [email or web address] MEDICARE [facility] MEDICARE SUPPLEMENT Care Teams 3D Artist Relationship Specialty Start Date End Date Robert Langford MD [address] [facility] [address] [place] [address] PCP - General 01/01/17
--- OUTSIDE RECORDS SUMMARY | 2025-01-05 11:01 | XMS_ITS | Continuity of Care Document ---
Author Organization [facility] Address [address] [place] [address] Phone Care Team Providers Care Cutter Tender Name Role Phone Kishore Velazco Unavailable Unavailable Procedures Procedure Date Office/outpatient Visit, Est Office/outpatient Visit, Est Eye Exam Established Pt Office/outpatient Visit, Est Fundus Photography W/ Report Visual Field Examination(s) Office/outpatient Visit, Est Office/outpatient Visit, Est Visual Field Examination(s) Office/outpatient Visit, Est Office/outpatient Visit, Est Fundus Photography W/ Report Visual Field Examination(s) Advance Directives Directive Yes / No Effective Date File Name No Information Encounters Encounter Description Practice Location Reason(s) For Visit Diagnoses Date Provider Providers Copied on Encounter Office/outpat ient Visit, [facility], [address], [place], [place], [address], [place] tel:[phone] [facility] No Information 0-200 9 Juan A Novak. [address] , [address], [place], [address], [place]. tel:[phone] Office/outpat ient Visit, [facility], [address], [place], [place], [address], [place] tel:[phone] [facility] No Information 200 9 Juan A Novak. [address], [place], [place], [facility], [place]. tel:[phone] [facility], [address], [place], [place], [address], [place] tel:[phone] [facility] No Information 9 Juan A Edsong. [address] , [address], [place], [place], [facility], [place]. tel:[phone] Office/outpat ient Visit, [facility], [address] [place] [address] [address], [place], [place], [address], tel:[phone] [facility] No Information 8 Juan A Novak. [address], [place], [place], [facility], [place]. tel:[phone] Referring Provider: Kishore Wong, [facility] [address], [place], [place], [facility]. tel:[phone] [facility], [address] [place] [address] [address], [place], [place], [address], [place] tel:[phone] [facility] No Information 8 Juan A Novak. [address], [address], [place], [place], [facility], [place]. tel:[phone] Referring Provider: Kishore Wong, [facility] hospital[facility] [address], [place], [place], [facility]. tel:[phone] Office/outpat ient Visit, [facility], [address] [place] [address] [address], [place], [place], [address], [place] tel:[phone] [facility] No Information 8 Juan A Novak. [address] , [address], [place], [facility], [place]. tel:[phone] Office/outpat ient Visit, [facility], [address], [place], [place], [address], [place] tel:[phone] [facility] No Information Aug- 9-200 7 Juan A Novak. [address] [facility] , [address], [place], [facility], [place]. tel:[phone] [facility], [address], [place], [place], [address], [place] tel:[phone] [facility] No Information Aug-1 0-200 7 Juan A Novak. [address] [facility] , [address], [place], [facility], [place]. tel:[phone] Referring Provider: Kishore Wong, [facility] [address], [place], [facility]. tel:[phone] Office/outpat ient Visit, [facility], [address], [place], [place], [address], [place] tel:[phone] [facility] No Information 9200 7 Juan A Novak. Critical [facility] [address], [address], [place], [facility], [place]. tel:[phone] Office/outpat ient Visit, [facility], [address] [place] [address] [address], [place], [place], [address], [place] tel:[phone] [facility] No Information Oct-2 8200 7 [address] Novak. [facility] , [address], [place], [place], [facility], [place]. tel:[phone] Referring Provider: Amarilys Gold [facility] [address], [place], [facility]. tel:[phone] [facility], [address], [place], [place], [address], [place] tel:[phone] [facility] No Information 7 Juan A Novak. [address] [facility] , [address], [place], [address], [place]. tel:[phone] Referring Provider: Kishore Wong [address] [facility] [address], [place], [address]. tel:[phone] Family History Family Member Type Diagnosis Age At Onset No Information Payers Payer name Insurance type Covered constitution party ID Authoriza tion(s) No Information Social History Type Description Quantity Date Captured Comments Sex Female Smoking Status No Information Chief Complaint And Reason For Visit No Information Reason For Referral Reason For Referral No Information History Of Present Illness Encounter Date Complaint History Of Prese nt Illness No Information Functional Status Date Functional Assessmen t No Information Instructions Date Instruction Additional Infor mation No Information Assessments Type Assessment Date No Information Patient Care Teams Name Effective Dates (start - stop) Status Members No Information
[2025-01-05 11:45] LABS: Hemoglobin A1C 5.3 % (<5.7)
[2025-01-05 11:54] LABS: Free T4 Free Thyroxine 1.02 ng/dL (0.78-2.19)
[2025-01-05 18:39] LABS: Alanine Aminotransferase 23 U/L (6-35); Albumin Level 3.8 g/dL (3.5-5.1); Alkaline Phosphatase 49 U/L (38-126); Anion Gap 5 mmol/L (4-12); Aspartate Amino Transferase 37 U/L (14-36); Bilirubin,Total 0.6 mg/dL (0.2-1.3); Blood Urea Nitrogen 23 mg/dL (7-17); Carbon Dioxide 30 mmol/L (22-30); Chloride 104 mmol/L (98-107); Cholesterol 178 mg/dL (0-200); Estimated Glomerular Filt Rate > 60; Glucose 83 mg/dL (65-110); HDL Direct 76 mg/dL; Sodium 139 mmol/L (137-145); Triglycerides 47 mg/dL (<150)
[2025-01-05 18:50] LABS: LDL Cholesterol Direct 77 mg/dL
[2025-01-05 19:08] LABS: Thyroid Stimulating Hormone 0.049 uIU/mL (0.465-4.680)
== END 2025-01-05 10:08 | disposition home or self-care (01) ==
LOC: ANHGOSHLAB 10:08
PROVIDERS: PCP Internal Medicine; Visit Provider Internal Medicine
DX: E78.2 Mixed hyperlipidemia (principal); I10 Essential (primary) hypertension; Z13.1 Encounter for screening for diabetes mellitus; Z13.29 Encounter for screening for other suspected endocrine disorder; Z79.899 Other long term (current) drug therapy
CPT/HCPCS: 36415; 80053; 80061; 83036; 84439; 84443; 84481

== ENCOUNTER 2025-04-20 08:53 | Outpatient (CLI) | payer MEDICARE, SELFPAY ==
--- OUTSIDE RECORDS SUMMARY | 2025-04-20 09:03 | XMS_ITS | Referral Summary ---
Author Organization [facility] Address [address] [place] [address] Care Team Providers Care Retail Sales Professional Name Role Phone Robert Langford MD Primary Care Provider [phone] Allergies Active Allergy Reactions Criticality Noted Date Comments Venom-Honey Bee Unknown 03/08/2020 Sulfa (Sulfonamide Antibiotics) Unknown 02/21 Social History Tobacco Use Types Packs/Day Years Used Date Smoking Tobacco: Never Assessed Comments No Sex and Gender Information Value Date Recorded Sex Assigned at Not on file Legal Sex Female 3:52 PM ASP NET C DEVELOPER Gender Identity Not on file Sexual Orientation Not on file Last Filed Vital Signs Vital Sign Reading Time Taken Comments Blood Pressure - - Pulse - - Temperature - - Respiratory Rate - - Oxygen Saturation - - Inhaled Oxygen Concentration - - Weight 63.5 kg (140 lb) 01/14/2018 12:38 PM CDT Height 165.1 cm (5' 5) 05/14/2023 1:09 PM CDT Body Mass Index 22.6 01/14/2018 12:38 PM CDT Plan of Treatment Not on file Procedures Procedure Name Priority Date/Time Associated Diagnosis Comments SCREENING MAMMOGRAM BILATERAL W JESUS Schedule Routine, Read Routine (OP Routine) 10/24/2024 1:56 PM ASP NET C DEVELOPER Screening mammogram, encounter for from Last 3 Months or Most Recently Relevant to Health Maintenance Results * Screening Mammogram Bilateral W Jesus (10/24/2024 1:56 PM ASP NET C DEVELOPER) Anatomical Region Laterality Modality Breast Bilateral Mammography 10/26/2024 8:35 AM ASP NET C DEVELOPER Impressions 10/26/2024 8:35 AM ASP NET C DEVELOPER No evidence of malignancy in either breast. FINAL ASSESSMENT: BI-RADS Category 1: Negative. RECOMMENDATION: Recommend return for annual screening mammogram in 12 months. Electronically signed by: Cliff Ferris M.D. Narrative 10/26/2024 8:35 AM ASP NET C DEVELOPER EXAMINATION: BILATERAL SCREENING MAMMOGRAM COMPARISON: 05/14/2023, 03/05/2022, 08/19/2020 TECHNIQUE: Full-field 2D and digital breast tomosynthesis (DBT) images were obtained. CAD was utilized. BREAST PARENCHYMAL COMPOSITION: There are scattered areas of fibroglandular density. FINDINGS: There is no suspicious mass, calcification, or distortion in either breast. us Self Screening Mammogram IMG MAMMO PROCEDURES Fi nal Result from Last 3 Months or Most Recently Relevant to Health Maintenance Insurance MEDICARE [employer] [facility]ARE [facility] MEDICARE SUPPLEMENT Care Teams Retail Sales Professional Relationship Specialty Start Date End Date Robert Langford MD [address] [place] [address] PCP - General 01/01/17
--- OUTSIDE RECORDS SUMMARY | 2025-04-20 09:03 | XMS_ITS | Continuity of Care Document ---
Author Organization [facility] Address [address] [place] [address] Phone Care Team Providers Care Chemist Proteins Name Role Phone Kishore Velazco Unavailable Unavailable [...] Providers Copied on Encounter Office/outpat ient Visit, [facility], [address], [place], [place], [address], [place] tel:[phone] [facility] No Information 0-200 9 Juan A Novak. [address] , [address], [place], [address], [place]. tel:[phone] Office/outpat ient Visit, [facility], [address], [place], [place], [address], [place] tel:[phone] [facility] No Information 200 9 Juan A Novak. [address] , [address], [place], [facility], [place]. tel:[phone] [facility], [address], [place], [place], [address], [place] tel:[phone] [facility] No Information 9 Juan A Edsong. [address], [place], [facility], [place]. tel:[phone] Office/outpat ient Visit, [facility], [address] [place] [address] [address], [place], [place], [address], tel:[phone] [facility] No Information 8 Juan A Novak. [address] , [address], [place], [facility], [place]. tel:[phone] Referring Provider: Kishore Wong, [facility] [address], [place], [place], [facility]. tel:[phone] [facility], [address] [place] [address] [address], [place], [place], [address], [place] tel:[phone] [facility] No Information 8 Juan A Novak. [address], [address], [place], [facility], [place]. tel:[phone] Referring Provider: Kishore Wong, [facility] [address], [place], [facility]. tel:[phone] Office/outpat ient Visit, [facility], [address] [place] [address] [address], [place], [place], [address], [place] tel:[phone] [facility] No Information 8 Juan A Novak. [address], [place], [facility], [place]. tel:[phone] Office/outpat ient Visit, [facility], [address], [place], [place], [address], [place] tel:[phone] [facility] No Information Aug- 9-200 7 Juan A Novak. [address] [facility] , [address], [place], [facility], [place]. tel:[phone] [facility], [address], [place], [place], [address], [place] tel:[phone] [facility] No Information Aug-1 0-200 7 Juan A [address]. [address] [facility] , [address], [place], [facility], [place]. tel:[phone] Referring Provider: Kishore Wong, [facility] [address], [place], [facility]. tel:[phone] Office/outpat ient Visit, [facility], [address], [place], [place], [address], [place] tel:[phone] [facility] No Information 9200 7 Juan A Novak. [facility] [address], [address], [place], [facility], [place]. tel:[phone] Office/outpat ient Visit, [facility], [address] [place] [address] [address], [place], [place], [address], [place] tel:[phone] [facility] No Information Oct-2 8200 7 Juan [address] Nov[address]. [facility] , [address], [place], [facility], [place]. tel:[phone] Referring Provider: Amarilys Gold [facility] [address], [place], [facility]. tel:[phone] [facility], [address], [place], [place], [address], [place] tel:[phone] [facility] No Information 7 Juan A Novak. [address] [facility] , [address], [place], [address], [place]. tel:[phone] Referring Provider: Kishore Wong [address] [facility] [address], [place], [address]. tel:[phone] Family History Family Member Type Diagnosis Age At Onset No Information Payers Payer name Insurance type Covered libertarian ID Authoriza tion(s) No Information Social History [...]
--- OUTSIDE RECORDS SUMMARY | 2025-04-20 09:03 | XMS_ITS | Clinical Summary ---
Author Organization [facility] Address [address] [place] [address] Care Team Providers Care Collar Baster Jumpbasting Name Role Phone Robert Langford MD Primary Care Provider [phone] Allergies Active Allergy Reactions Criticality Noted Date Comments Venom-Honey Bee Unknown 03/08/2020 Sulfa (Sulfonamide Antibiotics) Unknown 02/21 Medical History Medical History Date Comments Skin [...] on file Legal Sex Female 3:52 PM DIRECTOR OF DISTRICT OFFICE Gender Identity Not on file Sexual Orientation [...] Well Visit 65+ 2011 Influenza Vaccine (#1) 2025 9, 07/14/2019, 07/15/2018, Additional history exists DTaP/Tdap/Td Vaccine (2 - Td or Tdap) 05/08/2026 05/08/2016 Breast Cancer Screening-Mammogram Discontinued 10/24/2024, 05/14/2023, 03/05/2022, Additional history exists Procedures Procedure Name Priority Date/Time Associated Diagnosis Comments SCREENING MAMMOGRAM BILATERAL W JESUS Schedule Routine, Read Routine (OP Routine) 10/24/2024 1:56 PM DIRECTOR OF DISTRICT OFFICE Screening mammogram, encounter for from Last 3 Months or Most Recently Relevant to Health Maintenance Results * Screening Mammogram Bilateral W Jesus (10/24/2024 1:56 PM DIRECTOR OF DISTRICT OFFICE) Anatomical Region Laterality Modality Breast Bilateral Mammography 10/26/2024 8:35 AM DIRECTOR OF DISTRICT OFFICE Impressions 10/26/2024 8:35 AM DIRECTOR OF DISTRICT OFFICE No evidence of malignancy in either breast. FINAL ASSESSMENT: BI-RADS Category 1: Negative. RECOMMENDATION: Recommend return for annual screening mammogram in 12 months. Electronically signed by: Cliff Ferris M.D. Narrative 10/26/2024 8:35 AM DIRECTOR OF DISTRICT OFFICE EXAMINATION: BILATERAL SCREENING MAMMOGRAM COMPARISON: 05/14/2023, 03/05/2022, [...] Recently Relevant to Health Maintenance Insurance MEDICARE [facility] [place] [address] MEDICARE [facility] MEDICARE SUPPLEMENT Care Teams Collar Baster Jumpbasting Relationship Specialty Start Date End Date Robert Langford MD [address] [facility] [address] [place] [address] PCP - General 01/01/17
--- OUTSIDE RECORDS SUMMARY | 2025-04-20 09:03 | XMS_ITS | Clinical Summary ---
Author Organization [facility] Address [address] [facility] [place] [address] Phone Care Team Providers Care Beef Selector Name Role Phone Robert Langford MD Primary [...] be different from the original. Cameron Gregorio MD--Grocery Clerk Stocking ([facility] @ ) Problem [...] Smoking Tobacco: Former Cigarettes 1 10 1 329 1988 Smokeless Tobacco: Never Alcohol Use Standard [...] 12:15 PM CDT Height 165.1 cm (5' 5) 03/14/2020 12:15 PM CDT Body Mass Index 23.3 03/14/2020 12:15 PM CDT Plan of Treatment Health Maintenance Due Date Last Done Comments DTAP/TDAP/TD VACCINES (1 - Tdap) 1965 PNEUMOCOCCAL VACCINE 50+ YEARS (1 of 1 - PCV) 04/18/19 96 ZOSTER VACCINE (1 of 2) 1996 OSTEOPOROSIS SCREENING 01/04/2021 01/05/2016 RSV VACCINE (60+ or ) (1 - 1-dose 75+ series) 2021 INFLUENZA VACCINE (#1) 2025 07/14/2019 COLORECTAL SCREENING Discontinued 06/10/2019 Colorectal Cancer Screening Discontinued FIT-DNA Q 3 years Discontinued FIT/FOBT Q 1 year Discontinued Flex Sig/CT Colonography Q 5 years Discontinued Insurance MEDICARE PART A AND B BCBS SUPP Advance Directives For more information, please contact: [phone] * Full Code (Latest Code Status on File) Date Activated Date Inactivated Comments 03/14/2020 11:40 AM 03/14/2020 8:21 PM Care Teams Beef Selector Relationship Specialty Start Date End Date Robert Langford MD [address] [place] [id number] PCP - General Internal Medicine 03/11/20
[2025-04-20 13:01] LABS: Hematocrit 38.1 % (37.0-47.0); Hemoglobin 11.9 g/dL (12.0-15.0); Immature Granulocyte Percent A 0.2 % (0-0.5); Lymphocytes Absolute Auto 2.06 K/mm3 (0.9-3.2); Mean Corpuscular HGB Conc 31.2 g/dl (32-36); Mean Corpuscular Hemoglobin 30.5 pg (26-34); Mean Corpuscular Volume 97.7 fl (80-100); Nucleated Red Blood Cells Absolute Auto 0.000 K/mm3 (0.0-0.012); Nucleated Red Blood Cells Perc 0.0 % (0.0-0.2); Platelet Count Result 184 k/mm3 (150-375); Red Blood Count 3.90 M/mm3 (4.2-5.4); White Blood Count 5.2 K/mm3 (4.5-10.0)
[2025-04-20 13:02] LABS: Alanine Aminotransferase 16 U/L (6-35); Albumin Level 4.3 g/dL (3.5-5.1); Alkaline Phosphatase 48 U/L (38-126); Anion Gap 7 mmol/L (4-12); Aspartate Amino Transferase 32 U/L (14-36); Bilirubin,Total 0.8 mg/dL (0.2-1.3); Blood Urea Nitrogen 16 mg/dL (7-17); Calcium 9.1 mg/dL (8.4-10.2); Carbon Dioxide 28 mmol/L (22-30); Chloride 102 mmol/L (98-107); Cholesterol 198 mg/dL (0-200); Estimated Glomerular Filt Rate > 60; Glucose 84 mg/dL (65-110); HDL Direct 79 mg/dL; Potassium 3.9 mmol/L (3.4-5.0); Sodium 137 mmol/L (137-145); Total Protein 7.2 g/dL (6.3-8.2); Triglycerides 54 mg/dL (<150)
[2025-04-20 13:28] LABS: Free T4 Free Thyroxine 1.31 ng/dL (0.78-2.19)
[2025-04-20 13:32] LABS: Free T3 4.42 pg/mL (2.45-5.93)
[2025-04-20 13:37] LABS: Thyroid Stimulating Hormone 0.221 uIU/mL (0.465-4.680)
[2025-04-20 21:10] LABS: Hemoglobin A1C 5.4 % (<5.7)
== END 2025-04-20 08:54 | disposition home or self-care (01) ==
LOC: ANHGOSHLAB 08:53
PROVIDERS: PCP Internal Medicine; Visit Provider Internal Medicine
DX: I10 Essential (primary) hypertension (principal); E01.0 Iodine-deficiency related diffuse (endemic) goiter; E78.2 Mixed hyperlipidemia; R53.83 Other fatigue; R79.89 Other specified abnormal findings of blood chemistry; Z79.899 Other long term (current) drug therapy; Z13.1 Encounter for screening for diabetes mellitus; Z13.29 Encounter for screening for other suspected endocrine disorder
CPT/HCPCS: 36415; 80053; 80061; 83036; 84439; 84443; 84481; 85025

== ENCOUNTER 2025-06-03 09:09 | Outpatient (CLI) | payer MEDICARE, SELFPAY ==
--- NOTE | ~2025-06-03 | MR_ITS ---
EXAMINATION: MR shoulder LT wo con DATE: 06/03/2025 09:49 INDICATION: Incomplete rotator cuff tear or rupture of the left shoulder. Left shoulder pain. TECHNIQUE: Magnetic resonance imaging (MRI) of the left shoulder was performed without intravenous contrast. Sequences included axial PD-weighted FS FSE, coronal oblique PD-weighted FS FSE and T2-weighted FS FSE, and sagittal oblique T2-weighted FS FSE and T1-weighted FSE. COMPARISON: Left shoulder MRI 11/27/2024, radiographs 09/24/2024 FINDINGS: Coracoacromial arch: The acromion undersurface is curved in morphology (type II). There is severe acromioclavicular joint osteoarthritis. There is moderate subacromial/subdeltoid bursitis. Rotator cuff: There is severe supraspinatus and infraspinatus tendinopathy. There is an articular-sided partial-thickness tear of supraspinatus and infraspinatus tendons measuring 1.5 cm anterior to posterior by 2.0 cm proximal to distal by up to 80% tendon thickness. Teres minor tendon is normal. There is mild subs capularis tendinopathy. There is mild fatty atrophy of supraspinatus and infraspinatus muscle bellies. Biceps tendon and glenoid labrum: Biceps tendon is in bicipital groove. There is mild intra-articular biceps tendinopathy. There is a tear of superior glenoid labrum from 10:00 to 12:00 (SLAP tear). Fluid: There is a small glenohumeral joint effusion. Bones/cartilage: There is partial-thickness cartilage loss of glenoid and humeral head. Osteophytes are noted. IMPRESSION: 1. Severe rotator cuff tendinopathy with articular-sided partial-thickness tear of supraspinatus and infraspinatus tendons. 2. Mild intra-articular biceps tendinopathy. 3. Mild glenohumeral joint chondrosis. SLAP tear. 4. Severe acromioclavicular joint osteoarthritis. 5. Small glenohumeral joint effusion. 6. Moderate subacromial/subdeltoid bursitis. Reviewed, dictated and finalized at location E.
== END 2025-06-03 09:10 | disposition home or self-care (01) ==
LOC: GOSHIMG 09:09
PROVIDERS: PCP Internal Medicine; Visit Provider Orthopaedic Surgery
DX: M75.112 Incomplete rotator cuff tear or rupture of left shoulder, not specified as traumatic (principal)
CPT/HCPCS: 73221

== ENCOUNTER 2025-06-25 10:50 | Outpatient (CLI) | payer MEDICARE, SELFPAY ==
--- NOTE | ~2025-06-25 | XR_ITS ---
EXAMINATION: XR knee RT min 4V, 06/25/2025 11:10 CDT HISTORY: fell last week, no surgery COMPARISON: No comparisons available. Findings: No acute fracture or malalignment. Moderate tricompartmental degenerative changes, small effusion Soft tissues unremarkable. Impression: No acute fracture or malalignment. Reviewed, dictated and finalized at location P. Impression: No acute fracture or malalignment.
== END 2025-06-25 10:51 | disposition home or self-care (01) ==
LOC: GOSHIMG 10:52
PROVIDERS: PCP Internal Medicine; Visit Provider Internal Medicine
DX: M25.461 Effusion, right knee (principal); W19.XXXA Unspecified fall, initial encounter
CPT/HCPCS: 73564

== ENCOUNTER 2025-07-26 11:34 | Outpatient (CLI) | payer MEDICARE, SELFPAY ==
--- OUTSIDE RECORDS SUMMARY | 2025-07-26 13:09 | XMS_ITS | Clinical Summary ---
Author Organization [facility] Address [address] [facility] [place] [address] Phone Care Team Providers Care Saloonkeeper Name Role Phone Robret Langford MD Primary Care Provider + Allergies [...] be different from the original. Cameron Gregorio MD--Carroting Machine Operator ([facility] @ ) Problem [...] Smoking Tobacco: Former Cigarettes 1 10 1 359 1988 Smokeless Tobacco: Never Alcohol Use Standard [...] Advance Directives For more information, please contact: [phone] * Full Code (Latest Code Status on File) Date Activated Date Inactivated Comments 03/14/2020 11:40 AM 03/14/2020 8:21 PM Care Teams Saloonkeeper Relationship Specialty Start Date End Date Robert Langford MD [address] [place] [phone] PCP - General Internal Medicine 03/11/20
--- OUTSIDE RECORDS SUMMARY | 2025-07-26 13:10 | XMS_ITS | Clinical Summary ---
Author Organization [facility] Address [address] [place] [address] Care Team Providers Care Outside Rigger Name Role Phone Robert Langford MD Primary Care Provider [phone] Allergies Active Allergy Reactions Criticality Noted Date [...] on file Legal Sex Female 3:52 PM QUESTIONED DOCUMENTS EXAMINER Gender Identity Not on file Sexual Orientation [...] Read Routine (OP Routine) 10/24/2024 1:56 PM QUESTIONED DOCUMENTS EXAMINER Screening mammogram, encounter for from Last 3 Months or Most Recently Relevant to Health Maintenance Results * Screening Mammogram Bilateral W Jesus (10/24/2024 1:56 PM QUESTIONED DOCUMENTS EXAMINER) Anatomical Region Laterality Modality Breast Bilateral Mammography 10/26/2024 8:35 AM QUESTIONED DOCUMENTS EXAMINER Impressions 10/26/2024 8:35 AM QUESTIONED DOCUMENTS EXAMINER No evidence of malignancy in either breast. FINAL ASSESSMENT: BI-RADS Category 1: Negative. RECOMMENDATION: Recommend return for annual screening mammogram in 12 months. Electronically signed by: Cliff Ferris M.D. Narrative 10/26/2024 8:35 AM QUESTIONED DOCUMENTS EXAMINER EXAMINATION: BILATERAL SCREENING MAMMOGRAM COMPARISON: 05/14/2023, 03/05/2022, [...] Recently Relevant to Health Maintenance Insurance MEDICARE [facility] [address] [facility] [place] [address] MEDICARE [facility] MEDICARE SUPPLEMENT Care Teams Outside Rigger Relationship Specialty Start Date End Date Robert Langford MD PCP - General 01/01/17
[2025-07-26 13:31] LABS: Appearance Urine Clear (Clear)
[2025-07-26 13:33] LABS: Add Urine Microscopic? YES
== END 2025-07-26 11:35 | disposition home or self-care (01) ==
LOC: ANHGOSHLAB 11:35
PROVIDERS: PCP Internal Medicine; Visit Provider Internal Medicine
DX: R35.0 Frequency of micturition (principal)
CPT/HCPCS: 81001; 87086

== ENCOUNTER 2025-08-24 10:31 | Outpatient (CLI) | payer MEDICARE, SELFPAY ==
--- NOTE | ~2025-08-24 | CT_ITS ---
EXAMINATION: CT abdomen pelvis wo/w con DATE: 08/24/2025 11:09 INDICATION: Hematuria TECHNIQUE: Computed tomography (CT) of the abdomen and pelvis was performed without intravenous contrast. CT of the abdomen and pelvis was then performed with a total of 130 mL Omnipaque-350 intravenous contrast using a double-bolus technique for simultaneous opacification of the renal parenchyma and renal collecting system. Automated exposure control and iterative reconstruction technique were employed. The dose-length product was 473.66 mGy-cm. COMPARISON: 02/23/2020 FINDINGS: Calcified nodule at the left lung base consistent with old granulomatous disease. Heart size is normal. No pericardial or pleural effusion. There are several scattered hepatic cysts the largest in the right hepatic lobe measuring 4.4 cm. Gallbladder, spleen, pancreas and bilateral adrenal glands are normal. 1.8 cm intermediate attenuation nonenhancing complex exophytic proteinaceous/hemorrhagic cyst at the lower pole the left kidney. 8 mm high attenuation nonenhancing hernia/hemorrhagic cyst at the lower pole of the right kidney. There are few additional subcentimeter nonenhancing cysts in both kidneys. No urolithiasis. Mild bilateral hydronephrosis, right greater than left with no evident obstructing stone or mass at the transition points at the ureteropelvic junctions. A small portion of the proximal most left ureter is decompressed and remains unopacified with contrast. No urothelial irregularities or filling defects identified along the bilateral renal collecting systems and contrast opacified portions of the ureters. Bladder is normal. Moderate diverticulosis along the sigmoid colon without adjacent from trace stranding to suggest diverticular colitis. Remainder the bowels including the appendix are normal. Anteverted uterus and right adnexa are unremarkable. 3.4 cm left ovarian cyst. No free intraperitoneal gas or fluid. No pathologically enlarged abdominal or pelvic lymphadenopathy. Severe spondylosis at L5-S1 with mild spondylosis and more cephalad lumbar and lower thoracic spine. IMPRESSION: 1. 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 No urolithiasis, urothelial irregularities, renal mass or other etiology for reported hematuria. Reviewed, dictated and finalized at location A. A DIVING TEACHER IMPRESSION: 1. 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 N o urolithiasis, urothelial irregularities, renal mass or other etiology for rep orted hematuria.
[2025-08-24 10:52] LABS: Estimated Glomerular Filt Rate > 60
--- OUTSIDE RECORDS SUMMARY | 2025-08-24 11:31 | XMS_ITS | Clinical Summary ---
Author Organization [facility] Address [address] [place] [address] Phone Care Team Providers Care Pneumatic Riveter Name Role Phone Robert Langford MD Primary [...] be different from the original. Cameron Gregorio MD--Piece Dye Worker ([facility] @ ) Problem [...] Smoking Tobacco: Former Cigarettes 1 10 1 979 - 1988 Smokeless Tobacco: Never Alcohol Use Standard [...] Advance Directives For more information, please contact: [phone] * Full Code (Latest Code Status on File) Date Activated Date Inactivated Comments 03/14/2020 11:40 AM 03/14/2020 8:21 PM Care Teams Pneumatic Riveter Relationship Specialty Start Date End Date Robert Langford MD [address] [place] [phone] PCP - General Internal Medicine 03/11/20
--- OUTSIDE RECORDS SUMMARY | 2025-08-24 11:31 | XMS_ITS | Clinical Summary ---
Author Organization [facility] Address [address] [place] [address] Care Team Providers Care Bread Distributor Name Role Phone Robert Langford MD Primary Care Provider Allergies Active Allergy Reactions Criticality Noted Date [...] on file Legal Sex Female 3:52 PM R PROGRAMMER Gender Identity Not on file Sexual Orientation [...] Read Routine (OP Routine) 10/24/2024 1:56 PM R PROGRAMMER Screening mammogram, encounter for from Last 3 Months or Most Recently Relevant to Health Maintenance Results * Screening Mammogram Bilateral W Jesus (10/24/2024 1:56 PM R PROGRAMMER) Anatomical Region Laterality Modality Breast Bilateral Mammography 10/26/2024 8:35 AM R PROGRAMMER Impressions 10/26/2024 8:35 AM R PROGRAMMER No evidence of malignancy in either breast. FINAL ASSESSMENT: BI-RADS Category 1: Negative. RECOMMENDATION: Recommend return for annual screening mammogram in 12 months. Electronically signed by: Cliff Ferris M.D. Narrative 10/26/2024 8:35 AM R PROGRAMMER EXAMINATION: BILATERAL SCREENING MAMMOGRAM COMPARISON: 05/14/2023, 03/05/2022, [...] Recently Relevant to Health Maintenance Insurance MEDICARE [facility] [place] [address] MEDICARE [facility] MEDICARE SUPPLEMENT Care Teams Bread Distributor Relationship Specialty Start Date End Date Robert Langford MD PCP - General 01/01/17
[2025-08-24 11:33] LABS: Hematocrit 38.6 % (37.0-47.0); Hemoglobin 12.3 g/dL (12.0-15.0); Immature Granulocyte Percent A 0.2 % (0-0.5); Lymphocytes Absolute Auto 2.14 K/mm3 (0.9-3.2); Mean Corpuscular HGB Conc 31.9 g/dl (32-36); Mean Corpuscular Hemoglobin 30.8 pg (26-34); Mean Corpuscular Volume 96.5 fl (80-100); Nucleated Red Blood Cells Absolute Auto 0.000 K/mm3 (0.0-0.012); Nucleated Red Blood Cells Perc 0.0 % (0.0-0.2); Platelet Count Result 207 k/mm3 (150-375); Red Blood Count 4.00 M/mm3 (4.2-5.4); White Blood Count 6.0 K/mm3 (4.5-10.0)
[2025-08-24 11:34] LABS: Add Urine Microscopic? NO; Appearance Urine Clear (Clear); Glucose Urine UA Negative (Negative); Leukocyte Esterase Ur Negative LEU/UL (Negative); Nitrate Urine Negative (Negative); Specific Grav Ur 1.016 (1.001-1.035)
[2025-08-24 11:46] LABS: Alanine Aminotransferase 21 U/L (6-35); Albumin Level 4.3 g/dL (3.5-5.1); Alkaline Phosphatase 51 U/L (38-126); Anion Gap 6 mmol/L (4-12); Aspartate Amino Transferase 29 U/L (14-36); Bilirubin,Total 0.8 mg/dL (0.2-1.3); Blood Urea Nitrogen 17 mg/dL (7-17); Calcium 9.1 mg/dL (8.4-10.2); Carbon Dioxide 28 mmol/L (22-30); Chloride 103 mmol/L (98-107); Estimated Glomerular Filt Rate > 60; Glucose 99 mg/dL (65-110); Potassium 4.1 mmol/L (3.4-5.0); Sodium 137 mmol/L (137-145); Total Protein 7.5 g/dL (6.3-8.2)
== END 2025-08-24 10:32 | disposition home or self-care (01) ==
PROVIDERS: PCP Internal Medicine; Visit Provider Internal Medicine
DX: R31.9 Hematuria, unspecified (principal); R10.0 Acute abdomen; K21.9 Gastro-esophageal reflux disease without esophagitis; N13.30 Unspecified hydronephrosis
CPT/HCPCS: 36415; 74178; 80053; 81003; 85025; Q9967

== ENCOUNTER 2025-09-22 08:56 | Outpatient (CLI) | payer MEDICARE, SELFPAY ==
--- OUTSIDE RECORDS SUMMARY | 2025-09-22 09:06 | XMS_ITS | Clinical Summary ---
Author Organization [facility] Address [address] [place] [address] Care Team Providers Care Legal Analyst Name Role Phone Robert Langford MD Primary Care Provider [phone] Allergies Active Allergy Reactions Criticality Noted Date [...] on file Legal Sex Female 3:52 PM DOCKET SPECIALIST Gender Identity Not on file Sexual Orientation [...] Read Routine (OP Routine) 10/24/2024 1:56 PM DOCKET SPECIALIST Screening mammogram, encounter for from Last 3 Months or Most Recently Relevant to Health Maintenance Results * Screening Mammogram Bilateral W Jesus (10/24/2024 1:56 PM DOCKET SPECIALIST) Anatomical Region Laterality Modality Breast Bilateral Mammography 10/26/2024 8:35 AM DOCKET SPECIALIST Impressions 10/26/2024 8:35 AM DOCKET SPECIALIST No evidence of malignancy in either breast. FINAL ASSESSMENT: BI-RADS Category 1: Negative. RECOMMENDATION: Recommend return for annual screening mammogram in 12 months. Electronically signed by: Cliff Ferris M.D. Narrative 10/26/2024 8:35 AM DOCKET SPECIALIST EXAMINATION: BILATERAL SCREENING MAMMOGRAM COMPARISON: 05/14/2023, 03/05/2022, [...] Recently Relevant to Health Maintenance Insurance [facility]ICARE [facility] [address] MEDICARE [facility] MEDICARE SUPPLEMENT Care Teams Legal Analyst Relationship Specialty Start Date End Date Robert Langford MD PCP - General 01/01/17
--- OUTSIDE RECORDS SUMMARY | 2025-09-22 09:06 | XMS_ITS | Clinical Summary ---
Author Organization [facility] Address [address] [place] [address] Phone Care Team Providers Care Director Dental Services Name Role Phone Robert Langford MD Primary [...] be different from the original. Cameron Gregorio MD--Big Machine Consultant ([facility] @ ) Problem [...] Advance Directives For more information, please contact: [phone] * Full Code (Latest Code Status on File) Date Activated Date Inactivated Comments 03/14/2020 11:40 AM 03/14/2020 8:21 PM Care Teams Director Dental Services Relationship Specialty Start Date End Date Robert Langford MD [address] [place] [phone] PCP - General Internal Medicine 03/11/20
[2025-09-22 18:35] LABS: Hematocrit 40.7 % (37.0-47.0); Hemoglobin 12.6 g/dL (12.0-15.0); Immature Granulocyte Percent A 0.2 % (0-0.5); Lymphocytes Absolute Auto 2.18 K/mm3 (0.9-3.2); Mean Corpuscular HGB Conc 31.0 g/dl (32-36); Mean Corpuscular Hemoglobin 30.7 pg (26-34); Mean Corpuscular Volume 99.0 fl (80-100); Nucleated Red Blood Cells Absolute Auto 0.000 K/mm3 (0.0-0.012); Nucleated Red Blood Cells Perc 0.0 % (0.0-0.2); Platelet Count Result 208 k/mm3 (150-375); Red Blood Count 4.11 M/mm3 (4.2-5.4); White Blood Count 4.8 K/mm3 (4.5-10.0)
[2025-09-22 18:36] LABS: Add Urine Microscopic? YES; Appearance Urine Clear (Clear); Glucose Urine UA Negative (Negative); Leukocyte Esterase Ur Trace LEU/UL (Negative); Nitrate Urine Negative (Negative); Non Pathogenic Casts 0-2; Specific Grav Ur 1.012 (1.001-1.035)
[2025-09-22 18:40] LABS: Hemoglobin A1C 5.1 % (<5.7)
[2025-09-22 19:06] LABS: Alanine Aminotransferase 15 U/L (6-35); Albumin Level 4.2 g/dL (3.5-5.1); Alkaline Phosphatase 46 U/L (38-126); Anion Gap 8 mmol/L (4-12); Aspartate Amino Transferase 45 U/L (14-36); Bilirubin,Total 0.9 mg/dL (0.2-1.3); Blood Urea Nitrogen 18 mg/dL (7-17); Calcium 9.2 mg/dL (8.4-10.2); Carbon Dioxide 29 mmol/L (22-30); Chloride 102 mmol/L (98-107); Cholesterol 210 mg/dL (0-200); Estimated Glomerular Filt Rate > 60; Glucose 68 mg/dL (65-110); HDL Direct 89 mg/dL; Potassium 3.8 mmol/L (3.4-5.0); Sodium 139 mmol/L (137-145); Total Protein 7.3 g/dL (6.3-8.2); Triglycerides 42 mg/dL (<150)
[2025-09-22 19:21] LABS: Free T4 Free Thyroxine 0.98 ng/dL (0.78-2.19)
[2025-09-22 20:01] LABS: Thyroid Stimulating Hormone 0.301 uIU/mL (0.465-4.680)
== END 2025-09-22 08:57 | disposition home or self-care (01) ==
LOC: ANHGOSHLAB 08:58
PROVIDERS: PCP Internal Medicine; Visit Provider Internal Medicine
DX: I10 Essential (primary) hypertension (principal); R73.09 Other abnormal glucose; E55.9 Vitamin D deficiency, unspecified; R79.89 Other specified abnormal findings of blood chemistry; Z79.899 Other long term (current) drug therapy; E78.2 Mixed hyperlipidemia; M19.012 Primary osteoarthritis, left shoulder
CPT/HCPCS: 36415; 80053; 80061; 81001; 82306; 83036; 84439; 84443; 85025